=== PATIENT | female | born 1975 | race Caucasian/White ===

== ENCOUNTER → 2016-03-11 | Outpatient (CLI) | payer OTHER ==
[~2016-03-11] MED LIST: BACT2CRE TOP; BACT800T5 PO; CIPR500T89 PO; FAMO10TA5 OR; IBUP800T OR; LEVO500T PO; METO12TA PO; METO25TA2 PO; METOPROLOL OR; PERC5TAB PO; PROZ20CA OR; PYRI200T2 PO; SENO8.6T9 PO; SERT-141 PO; TIZA4TAB OR; VALT1TAB PO; VITA-113 SL; VITA200028 PO; VITAMIN D 2 PO; ZANA4TAB PO; ZOLO50TA PO
--- NOTE | 2016-03-11 18:06 | REP ---
Thoracic spine three views: There is mild thoracic scoliosis convex right. Vertebral body heights and alignment are normal. There are no compression deformities. No listhesis. There is mild degenerative disc disease at multiple levels, not unusual for patient age. There are no lytic, blastic or destructive changes. The pedicles are unremarkable. Impression: Mild scoliosis. Mild multilevel degenerative disc disease. Signed by Lalo Davis MD 03/11/2016 05:57 P
--- NOTE | 2016-03-12 16:23 | REP ---
Cervical spine eight views: Comparison is the MRI dated 03/23/2011. Vertebral body heights and alignment are normal C1-C7. T1 is obscured by the shoulders. There is disc space narrowing at C 05/06, compatible with degenerative disc disease. The remainder of the disc spaces are unremarkable. The prevertebral soft tissues are normal. The facets are normally aligned. There is no bony foraminal encroachment. There is no listhesis on flexion or extension. The C7 transverse processes are mildly elongated bilaterally. Impression: C5-6 degenerative disc disease. Mildly elongated C7 transverse processes bilaterally. Otherwise, negative cervical spine plain film study C1-C7. T1 is obscured by the shoulders and cannot be evaluated. Signed by Lalo Davis MD 03/12/2016 04:14 P
--- NOTE | 2016-03-12 16:24 | REP ---
Lumbar spine five views: Comparison is the MRI dated 03/23/2011. 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 Vertebral body heights, interspacing alignment are normal. There is no spondylolysis or spondylolisthesis. The facets, pedicles and sacroiliac articulations are unremarkable. Impression: Six lumbar segments, otherwise negative lumbar spine. Signed by Lalo Davis MD 03/12/2016 04:15 P
== END ==
LOC: M WUC 11:54
PROVIDERS: ATTEND Nurse Practitioner Adult Health
DX: M54.2 Cervicalgia (principal); M54.5 Low back pain; M41.20 Other idiopathic scoliosis, site unspecified

== ENCOUNTER → 2016-08-18 | Outpatient (CLI) | payer OTHER ==
--- NOTE | 2016-08-18 16:45 | REPMRS ---
Patient History The patient states she had a clinical breast exam in 07/2016. Family history of ovarian cancer in paternal grandmother at age 50 or over. Digital Woman Screen Mammo: August 18, 2016 - Exam #: [id number] Bilateral CC and MLO view(s) were taken. Technologist: Delores Liang Technologist Prior study comparison: July 01, 2015, digital woman screen mammo performed at [facility]. May 05, 2010, right breast digital mammo diagnostic unilateral, performed at [facility]. FINDINGS: There are scattered fibroglandular densities. There has been no change in the appearance of the mammogram from the prior studies. There is a mild amount of scattered fibroglandular density which is fairly symmetric. There is no interval development of dominant mass, architectural distortion, or clustered microcalcification suggestive of malignancy. ASSESSMENT: BI-RADS/ACR category 1 mammogram. Negative. Recommendation Routine screening mammogram in 1 year (for women over age 40). This mammogram was interpreted with the aid of an FDA-approved computer-aided dectection system. Electronically Signed By: Harsha Hyatt MD 08/18/16 [id number]
== END ==
LOC: M WHC 13:34
PROVIDERS: ATTEND Nurse Practitioner Family
DX: Z12.31 Encounter for screening mammogram for malignant neoplasm of breast (principal)

== ENCOUNTER → 2017-08-17 | Outpatient (CLI) | payer BC | LOC: M WHC 13:14 | DX: Z12.31 Encounter for screening mammogram for malignant neoplasm of breast (principal) | CPT/HCPCS: 77067 ==

== ENCOUNTER → 2017-08-23 | Outpatient (CLI) | payer BC | LOC: M WHC 09:22 | DX: R10.2 Pelvic and perineal pain (principal); Z90.710 Acquired absence of both cervix and uterus; Z80.41 Family history of malignant neoplasm of ovary | CPT/HCPCS: 76830 ==

== ENCOUNTER → 2018-08-19 | Outpatient (CLI) | payer BC ==
[~2018-08-19] MED LIST changes: +METO-346 PO; -METO12TA PO
--- NOTE | 2018-08-19 14:09 | REPMRS ---
Patient History The patient states she had a clinical breast exam in 08/2018. Family history of ovarian cancer at age 50 or over in paternal grandmother, colorectal cancer in maternal uncle. No Hormone Replacement Therapy 3D TOMOSYNTHESIS WAS PERFORMED. The Dequan Wick lifetime risk for breast cancer is 11.4%. Digital Woman Screen Mammo: August 19, 2018 - Exam #: [id number] Bilateral CC and MLO view(s) were taken. Technologist: Whitney Trejo, Technologist Prior study comparison: August 17, 2017, bilateral digital woman screen mammo performed at [facility]. August 18, 2016, digital woman screen mammo performed at [facility]. FINDINGS: There are scattered fibroglandular densities. There has been no change in the appearance of the mammogram from the prior studies. There is a mild amount of residual fibroglandular tissue which is fairly symmetric. There is no interval development of dominant mass, architectural distortion, or clustered microcalcification suggestive of malignancy. Assessment: BI-RADS/ACR category 1 mammogram. Negative Mammogram. Recommendation Routine screening mammogram in 1 year (for women over age 40). This mammogram was interpreted with the aid of an FDA-approved computer-aided dectection system. Electronically Signed By: Lalo Hercules MD 08/19/18 [id number]
== END ==
LOC: M WHC 12:46
PROVIDERS: ATTEND Nurse Practitioner Family
DX: Z12.31 Encounter for screening mammogram for malignant neoplasm of breast (principal)

== ENCOUNTER → 2019-08-20 | Outpatient (CLI) | payer BC ==
--- NOTE | 2019-08-20 14:56 | REPMRS ---
Patient History The patient states she had a clinical breast exam in August 2019. Family history of ovarian cancer at age 50 or over in paternal grandmother, colorectal cancer in maternal uncle. No Hormone Replacement Therapy Digital Woman Screen Mammo: August 20, 2019 - Exam #: [id number] Bilateral CC and MLO view(s) were taken. Technologist: Romi Leon Technologist Prior study comparison: August 19, 2018, bilateral digital woman screen mammo performed at [facility]. August 17, 2017, bilateral digital woman screen mammo performed at [facility]. FINDINGS: The breast tissue is almost entirely fat. The [employer] volumetric breast density category is: A. There has been no change in the appearance of the mammogram from the prior studies. There is no interval development of dominant mass, architectural distortion, or grouped microcalcification typical of malignancy. 3-D tomosynthesis shows no additional findings. Assessment: BI-RADS/ACR category 1 mammogram. Negative Mammogram. Recommendation Routine screening mammogram of both breasts in 1 year (for women over age 40). This patient's Lifetime Breast Cancer RIsk is estimated at 11.2 %. This mammogram was interpreted with the aid of an FDA-approved computer-aided dectection system. Electronically Signed By: Harsha Hyatt MD 08/20/19 [id number]
== END ==
LOC: M WHC 12:57
PROVIDERS: ATTEND Nurse Practitioner Family
DX: Z12.31 Encounter for screening mammogram for malignant neoplasm of breast (principal)

== ENCOUNTER → 2020-01-10 | Outpatient (CLI) | payer BC ==
[2020-01-11 06:59] LABS: BASO # 0.1 10^3/uL (0.0-0.2); BASO % 0.8 % (0.0-1.0); EOS # 0.2 10^3/uL (0.0-0.5); EOS % 2.6 % (0.0-3.0); HEMATOCRIT 48.1 % (36.0-47.0); HEMOGLOBIN 15.3 g/dl (12.0-15.5); LYMPH # 2.5 10^3/uL (1.5-5.0); LYMPH % 41.6 % (24.0-44.0); MEAN CORPUSCULAR HEMOGLOBIN 32.4 pg (27.0-33.0); MEAN CORPUSCULAR HGB CONC 31.8 g/dl (32.0-36.5); MEAN CORPUSCULAR VOLUME 101.9 fl (80.0-96.0); MONO # 0.5 10^3/uL (0.0-0.8); MONO % 8.6 % (0.0-5.0); NEUTROPHILS # 2.8 10^3/uL (1.5-8.5); NEUTROPHILS % 46.1 % (36.0-66.0); PLATELET COUNT, AUTOMATED 371 10^3/uL (150-450); RED BLOOD COUNT 4.72 10^6/uL (4.00-5.40)
[2020-01-11 07:23] LABS: BLOOD UREA NITROGEN 12 MG/DL (7-18); CALCIUM LEVEL 9.3 MG/DL (8.5-10.1); CARBON DIOXIDE LEVEL 28 MEQ/L (21-32); CHLORIDE LEVEL 104 MEQ/L (98-107); CREATININE FOR GFR 0.93 MG/DL (0.55-1.30); GLOMERULAR FILTRATION RATE > 60.0 (>58); GLUCOSE, FASTING 96 MG/DL (70-100); POTASSIUM SERUM 4.1 MEQ/L (3.5-5.1); SODIUM LEVEL 138 MEQ/L (136-145)
[2020-01-11 07:24] LABS: ALBUMIN 4.2 GM/DL (3.2-5.2); ALT/SGPT 23 U/L (12-78); BILIRUBIN,TOTAL 0.6 MG/DL (0.2-1.0); CHOLESTEROL LEVEL 216 MG/DL (<200); CHOLESTEROL RISK RATIO 2.918 (<5); HDL CHOLESTEROL 74 MG/DL (>40); LDL CHOLESTEROL 112 MG/DL (<100); NON-HDL-C 142 MG/DL; TOTAL PROTEIN 7.2 GM/DL (6.4-8.2); TRIGLYCERIDES LEVEL 150 MG/DL (<150)
[2020-01-11 07:29] LABS: HEMOGLOBIN A1c 5.3 %
== END ==
LOC: M WUC 08:47
PROVIDERS: ATTEND Nurse Practitioner Adult Health
DX: E78.00 Pure hypercholesterolemia, unspecified (principal); F41.9 Anxiety disorder, unspecified; Z79.899 Other long term (current) drug therapy

== ENCOUNTER 2020-04-15 22:54 | Emergency (ER) | payer BC ==
[~2020-04-15] VITALS: Ht 167.6 cm; Wt 94.5 kg
[2020-04-15] MEDS ORDERED: medical marijuana PO (22:59)
[2020-04-15] MEDS ORDERED: FAMO1TAB25 PO (22:59)
--- OUTSIDE RECORDS SUMMARY | 2020-04-15 23:00 | CCD ---
Author Author [facility] Organization [facility] Address Unknown Phone Unavailable Care Team Providers Care Bad Credit Collector Name Role Phone DAVI MEJIA MD Unavailable Unavailable DAVI MEJIA MD Unavailable Unavailable DAVI MEJIA MD Unavailable Unavailable DAVI MEJIA MD Unavailable Unavailable DAVI MEJIA MD Unavailable Unavailable DAVI MEJIA MD Unavailable Unavailable DAVI MEJIA MD Unavailable Unavailable DAVI MEJIA MD Unavailable Unavailable DAVI MEJIA MD Unavailable Unavailable DAVI MEJAI MD Unavailable Unavailable DAVI MEJIA MD Unavailable Unavailable DAVI MEJIA MD Unavailable Unavailable DAVI MEJIA MD Unavailable Unavailable DAVI MEJIA MD Unavailable Unavailable JACKIE, MAQBOOL MARK MD Unavailable Unavailable JACKIE, MAQBOOL MARK MD Unavailable Unavailable JACKIE, MAQBOOL MARK MD Unavailable Unavailable JACKIE, MAQBOOL MARK MD Unavailable Unavailable JACKIE, MAQBOOL MARK MD Unavailable Unavailable JACKIE, MAQBOOL MARK MD Unavailable Unavailable JACKIE, MAQBOOL MARK MD Unavailable Unavailable JACKIE, MAQBOOL MARK MD Unavailable Unavailable JACKIE, MAQBOOL MARK MD Unavailable Unavailable JACKIE, MAQBOOL MARK MD Unavailable Unavailable JACKIE, MAQBOOL MARK MD Unavailable Unavailable JACKIE, MAQBOOL MARK MD Unavailable Unavailable JACKIE, MAQBOOL MARK MD Unavailable Unavailable JACKIE, MAQBOOL MARK MD Unavailable Unavailable JACKIE, MAQBOOL MARK MD Unavailable Unavailable JACKIE, MAQBOOL MARK MD Unavailable Unavailable JACKIE, MAQBOOL MARK MD Unavailable Unavailable JACKIE, MAQBOOL MARK MD Unavailable Unavailable JACKIE, MAQBOOL MARK MD Unavailable Unavailable JACKIE, MAQBOOL MARK MD Unavailable Unavailable JACKIE, MAQBOOL MARK MD Unavailable Unavailable JACKIE, MAQBOOL MARK MD Unavailable Unavailable JACKIE, MAQBOOL MARK MD Unavailable Unavailable JACKIE, MAQBOOL MARK MD Unavailable Unavailable JACKIE, MAQBOOL MARK MD Unavailable Unavailable JACKIE, MAQBOOL MARK MD Unavailable Unavailable JACKIE, MAQBOOL MARK MD Unavailable Unavailable JACKIE, MAQBOOL MARK MD Unavailable Unavailable JACKIE, MAQBOOL MARK MD Unavailable Unavailable JACKIE, MAQBOOL MARK MD Unavailable Unavailable JACKIE, MAQBOOL MARK MD Unavailable Unavailable JACKIE, MAQBOOL MARK MD Unavailable Unavailable JACKIE, MAQBOOL MARK MD Unavailable Unavailable JACKIE, MAQBOOL MARK MD Unavailable Unavailable JACKIE, MAQBOOL MARK MD Unavailable Unavailable JACKIE, MAQBOOL MARK MD Unavailable Unavailable JACKIE, MAQBOOL MARK MD Unavailable Unavailable JACKIE, MAQBOOL MARK MD Unavailable Unavailable JACKIE, MAQBOOL MARK MD Unavailable Unavailable JACKIE, MAQBOOL MARK MD Unavailable Unavailable JACKIE, MAQBOOL MARK MD Unavailable Unavailable JACKIE, MAQBOOL MARK MD Unavailable Unavailable JACKIE, MAQBOOL MARK MD Unavailable Unavailable JACKIE, MAQBOOL MARK MD Unavailable Unavailable JACKIE, MAQBOOL MARK MD Unavailable Unavailable JACKIE, MAQBOOL MARK MD Unavailable Unavailable JACKIE, MAQBOOL MARK MD Unavailable Unavailable JACKIE, MAQBOOL MARK MD Unavailable Unavailable JACKIE, MAQBOOL MARK MD Unavailable Unavailable JACKIE, MAQBOOL MARK MD Unavailable Unavailable JACKIE, MAQBOOL MARK MD Unavailable Unavailable JACKIE, MAQBOOL MARK MD Unavailable Unavailable JACKIE, MAQBOOL MARK MD Unavailable Unavailable JACKIE, MAQBOOL MARK MD Unavailable Unavailable JACKIE, MAQBOOL MARK MD Unavailable Unavailable JACKIE, MAQBOOL MARK MD Unavailable Unavailable JACKIE, MAQBOOL MARK MD Unavailable Unavailable JACKIE, MAQBOOL MARK MD Unavailable Unavailable JACKIE, MAQBOOL MARK MD Unavailable Unavailable JACKIE, MAQBOOL MARK MD Unavailable Unavailable [facility], Zena Unavailable Dragan, Swetha Samina ANP-BC Unavailable Unavailable Dragan, Swetha Samina ANP-BC Unavailable Unavailable Dragan, Swetha Samina ANP-BC Unavailable Unavailable Dragan, Swetha Samina ANP-BC Unavailable Unavailable Dragan, Swetha Samina ANP-BC Unavailable Unavailable Dragan, Swetha Samina ANP-BC Unavailable Unavailable Dragan, Swetha Samina ANP-BC Unavailable Unavailable Dragan, Swetha Samina ANP-BC Unavailable Unavailable Dragan, Swetha Samina ANP-BC Unavailable Unavailable Dragan, Swetha Samina ANP-BC Unavailable Unavailable Dragan, Swetha Samina ANP-BC Unavailable Unavailable Dragan, Swetha Samina ANP-BC Unavailable Unavailable Dragan, Swetha Samina ANP-BC Unavailable Unavailable Dragan, Swetha Samina ANP-BC Unavailable Unavailable Dragan, Swetha Samina ANP-BC Unavailable Unavailable Dragan, Swetha Samina ANP-BC Unavailable Unavailable Dragan, Swetha Samina ANP-BC Unavailable Unavailable Dragan, Swetha Samina ANP-BC Unavailable Unavailable Dragan, Swetha Samina ANP-BC Unavailable Unavailable Dragan, Swetha Samina ANP-BC Unavailable Unavailable Dragan, Swetha Samina ANP-BC Unavailable Unavailable Dragan, Swetha Samina ANP-BC Unavailable Unavailable Dragan, Swetha Samina ANP-BC Unavailable Unavailable Dragan, Swetha Samina ANP-BC Unavailable Unavailable Dragan, Swetha Samina ANP-BC Unavailable Unavailable Dragan, Swetha Samina ANP-BC Unavailable Unavailable Dragan, Swetha Samina ANP-BC Unavailable Unavailable Dragan, Swetha Samina ANP-BC Unavailable Unavailable Dragan, Swetha Samina ANP-BC Unavailable Unavailable Dragan, Swetha Samina ANP-BC Unavailable Unavailable Dragan, Swetha Samina ANP-BC Unavailable Unavailable Dragan, Swetha Samina ANP-BC Unavailable Unavailable Dragan, Swetha Samina ANP-BC Unavailable Unavailable Dragan, Swetha Samina ANP-BC Unavailable Unavailable Dragan, Swetha Samina ANP-BC Unavailable Unavailable Dragan, Swetha Samina ANP-BC Unavailable Unavailable Dragan, Swetha Samina ANP-BC Unavailable Unavailable Dragan, Swetha Samina ANP-BC Unavailable Unavailable Dragan, Swetha Samina ANP-BC Unavailable Unavailable Dragan, Swetha Samina ANP-BC Unavailable Unavailable Dragan, Swetha Samina ANP-BC Unavailable Unavailable Dragan, Swetha Samina ANP-BC Unavailable Unavailable Dragan, Swetha Samina ANP-BC Unavailable Unavailable Dragan, Swetha Samina ANP-BC Unavailable Unavailable Dragan, Swteha Samina ANP-BC Unavailable Unavailable Dragan, Swetha Samina ANP-BC Unavailable Unavailable Dragan, Swetha Samina ANP-BC Unavailable Unavailable Dragan, Swetha Samina ANP-BC Unavailable Unavailable Dragan, Swetha Samina ANP-BC Unavailable Unavailable Dragan, Swetha Samina ANP-BC Unavailable Unavailable Dragan, Swetha Samina ANP-BC Unavailable Unavailable Dragan, Swetha Samina ANP-BC Unavailable Unavailable Dragan, Swetha Samina ANP-BC Unavailable Unavailable Dragan, Swetha Samina ANP-BC Unavailable Unavailable Dragan, Swetha Samina ANP-BC Unavailable Unavailable Dragan, Swetha Samina ANP-BC Unavailable Unavailable Dragan, Swetha Samina ANP-BC Unavailable Unavailable Dragan, Swetha Samina ANP-BC Unavailable Unavailable Dragan, Swetha Samina ANP-BC Unavailable Unavailable Dragan, Swetha Samina ANP-BC Unavailable Unavailable Dragan, Swetha Samina ANP-BC Unavailable Unavailable Dragan, Swetha Samina ANP-BC Unavailable Unavailable Dragan, Swetha Samina ANP-BC Unavailable Unavailable Dragan, Swetha Samina ANP-BC Unavailable Unavailable Dragan, Swetha Samina ANP-BC Unavailable Unavailable Dragan, Swetha Samina ANP-BC Unavailable Unavailable Dragan, Swetha Samina ANP-BC Unavailable Unavailable Dragan, Swetha Samina ANP-BC Unavailable Unavailable Dragan, Swetha Samina ANP-BC Unavailable Unavailable Dragan, Swetha Samina ANP-BC Unavailable Unavailable Draagn, Swetha Samina ANP-BC Unavailable Unavailable Dragan, Swetha Samina ANP-BC Unavailable Unavailable Dragan, Swetha Samina ANP-BC Unavailable Unavailable Dragan, Swetha Samina ANP-BC Unavailable Unavailable Dragan, Swetha Samina ANP-BC Unavailable Unavailable Dragan, Swetha Samina ANP-BC Unavailable Unavailable Dragan, Swetha Samina ANP-BC Unavailable Unavailable Dragan, Swetha Samina ANP-BC Unavailable Unavailable Dragan, Swetha Samina ANP-BC Unavailable Unavailable Dragan, Swetha Samina ANP-BC Unavailable Unavailable Dragan, Swetha Samina ANP-BC Unavailable Unavailable Dragan, Swetha Samina ANP-BC Unavailable Unavailable Dragan, Swetha Asmina ANP-BC Unavailable Unavailable Dragan, Swetha Samina ANP-BC Unavailable Unavailable Dragan, Swetha Samina ANP-BC Unavailable Unavailable Dragan, Swetha Samina ANP-BC Unavailable Unavailable Dragan, Swetha Samina ANP-BC Unavailable Unavailable Dragan, Swetha Samina ANP-BC Unavailable Unavailable Dragan, Swetha Samina ANP-BC Unavailable Unavailable Dragan, Swetha Samina ANP-BC Unavailable Unavailable Dragan, Swetha Samina ANP-BC Unavailable Unavailable Dragan, Swetha Samina ANP-BC Unavailable Unavailable Dargan, Swetha Samina ANP-BC Unavailable Unavailable Dragan, Swetha Samina ANP-BC Unavailable Unavailable Dragan, Swetha Samina ANP-BC Unavailable Unavailable Dragan, Swetha Samina ANP-BC Unavailable Unavailable Dragan, Swetha Samina ANP-BC Unavailable Unavailable Dragan, Swetha Samina ANP-BC Unavailable Unavailable Dragan, Swetha Samina ANP-BC Unavailable Unavailable Dragan, Swetha Samina ANP-BC Unavailable Unavailable Dragan, Swetha Samina ANP-BC Unavailable Unavailable Dragan, Swetha Samina ANP-BC Unavailable Unavailable Dragan, Swetha Samina ANP-BC Unavailable Unavailable Dragan, Swetha Samina ANP-BC Unavailable Unavailable Dragan, Swetha Samina ANP-BC Unavailable Unavailable Dragan, Swetha Samina ANP-BC Unavailable Unavailable Dragan, Swetha Samina ANP-BC Unavailable Unavailable Dragan, Swetha Samina ANP-BC Unavailable Unavailable Dragan, Swetha Samina ANP-BC Unavailable Unavailable Dragan, Swetha Samina ANP-BC Unavailable Unavailable Dragan, Swetah Samina ANP-BC Unavailable Unavailable Dragan, Swetha Samina ANP-BC Unavailable Unavailable Dragan, Swetha Samina ANP-BC Unavailable Unavailable Dragan, Swetha Samina ANP-BC Unavailable Unavailable Dragan, Swetha Samina ANP-BC Unavailable Unavailable Dragan, Swetha Samina ANP-BC Unavailable Unavailable Dragan, Swetha Samina ANP-BC Unavailable Unavailable Dragan, Swetha Samina ANP-BC Unavailable Unavailable Dragan, Swetha Samina ANP-BC Unavailable Unavailable Dragan, Swetha Samina ANP-BC Unavailable Unavailable Dragan, Swetha Samina ANP-BC Unavailable Unavailable Dragan, Swetha Samina ANP-BC Unavailable Unavailable Dragan, Swetha Samina ANP-BC Unavailable Unavailable Dragan, Swetha Samina ANP-BC Unavailable Unavailable Dragan, Swetha Samina ANP-BC Unavailable Unavailable Dragan, Swetha Samina ANP-BC Unavailable Unavailable Dragan, Swetha Samina ANP-BC Unavailable Unavailable Dragan, Swetha Samina ANP-BC Unavailable Unavailable ANABELA Archibald, Sherrie Unavailable Re-disclosure Warning The records that you are about to access may contain information from federally-assisted alcohol or drug abuse programs. If such information is present, then the following federally mandated warning applies: This information has been disclosed to you from records protected by federal confidentiality rules (42 CFR part 2). The federal rules prohibit you from making any further disclosure of this information unless further disclosure is expressly permitted by the written consent of the person to whom it pertains or as otherwise permitted by 42 CFR part 2. A general authorization for the release of medical or other information is NOT sufficient for this purpose. The Federal rules restrict any use of the information to criminally investigate or prosecute any alcohol or drug abuse patient.The records that you are about to access may contain highly sensitive health information, the redisclosure of which is protected by Article 27-F of the [facility] Public Health law. If you continue you may have access to information: Regarding HIV / AIDS; Provided by facilities licensed or operated by the [facility] Office of Mental Health; or Provided by the [facility] Office for People With Developmental Disabilities. If such information is present, then the following [facility] mandated warning applies: This information has been disclosed to you from confidential records which are protected by state law. State law prohibits you from making any further disclosure of this information without the specific written consent of the person to whom it pertains, or as otherwise permitted by law. Any unauthorized further disclosure in violation of state law may result in a fine or prison sentence or both. A general authorization for the release of medical or other information is NOT sufficient authorization for further disc losure. 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 -NO Allergies and Adverse Reactions Type Description Substance Reaction Status Data Source(s ) Drug Allergy Drug Allergy NKDA [facility] ([facility], ) Family History Family Member Name Family Member Gender Family Member Status Date o f Status Description Data Source(s) Unknown Male Problem [facility] ([facility]) Unknown Unknown Problem [facility] ([facility] Unknown Unknown Problem [facility] ([facility]) Unknown Unknown Problem [facility] ([facility]) Unknown Unknown Problem [facility] ([facility]) Unknown Unknown Problem [facility] ([facility]) Encounters Encounter Providers Location Date Indications Data Source(s ) Outpatient<td ID="encounterTypeDescripti onID0">Hygeine 45min</td><td>Zena Browning [facility]</td><td>[facility]</td><td>03/29/2020</td><td>2:43PM</td><td>03/23/2020 11:59PM</td><td></td> Attender: Zena Browning RD [facility] 03/29/19 02:43:00 PM EST - 03/23/2020 11:59:00 PM EST [place] ([facility]) Outpatient Attender: Samina SILVESTRE 12/21 09:40:00 AM EST - 01/14/2020 09:40:00 AM EST [facility] Outpatient Attender: Samina SILVESTRE 09/19 08:01:00 AM EDT - 10/08/2019 08:01:00 AM EDT [facility] Outpatient Attender: Samina SILVESTRE 09/19 08:12:00 AM EDT - 10/01/2019 08:12:00 AM EDT [facility] [address] [place] [phone] 08/20/2019 12:00:00 AM EDT eCW1 ([facility]) Outpatient Attender: Samina SILVESTRE 03/22 11:11:00 AM EST - 04/09/2019 11:11:00 AM EST [facility] Outpatient Attender: Samina SILVESTRE Family Practice 03/22 10:20:00 AM EST [facility] ([facility]) Outpatient Attender: MARK MEJIA MD 04/02/2019 07:40:00 A M EST [facility] Outpatient<td ID="encounterTypeDescripti onID1">COVID 19 IMM</td><td>Sherrie Archibald RN</td><td>[facility]</td><td>03/23/2020</td><td>03/17/2019 3:10PM</td><td>1:59PM</td><td></td> Attender: ANABELA [facility] 03/17/2019 03:10:00 PM EST - 03/23/2020 01:59:09 PM EST [place] Unknown<td ID="encounterTypeDescriptionI D0">H Child Prophy</td><td>Zena Browning RDH</td><td>[facility]</td><td>03/17/2019</td><td></td> [facility]/17/2019 01:01:00 PM EST - 03/17/2019 11:59:00 PM EST [place] ([facility] ) Outpatient<td ID="encounterTypeDescripti onID2">COVID 19 IMM</td><td>Sherrie Archibald RN</td><td>[facility]</td><td>02/24/2020</td><td>03/17/2019 7:30AM</td><td>8:26AM</td><td></td> Attender: Sherrie Archibald RN [facility] 03/17/2019 07:30:00 AM EST - 02/24/2020 08:26:01 AM EST [place] ([facility]) Outpatient Attender: Samina Archibald [facility] 12/21 02:27:00 PM EST - 01/15/2019 02:27:00 PM EST [facility] Immunizations Vaccine Date Status Description Data Source(s) Moderna COVID-19 03/23/2020 01:44:00 PM EST completed Moderna COVID- 19 2 03/23/2020 Right Deltoid Complete (Administered) [facility] [place] ([facility]) Note: Pt tolerated well Moderna COVID-19 02/24/2020 07:52:00 AM EST completed Moderna COVID- 19 1 02/24/2020 Right Deltoid Complete (Administered) [facility] [place] ([facility]) Note: Administered 0.5ml right deltoid, dosage confirmed with Sherrie Archibald, patient tolerated well. [email or web address] Medications Medication Brand Name Start Date Product Form Dose Route Admi nistrative Instructions Pharmacy Instructions Status Indications Reaction Description Data Source(s) 1 mg 10/14/2019 12:00:00 AM EDT tablet 56 TAKE ONE TABLET BY MOUTH TWICE A DAY TAKE ONE TABLET BY MOUTH TWICE A DAY SOLD: 10/19/2019 [facility] 0.5 mg (11)- 1 mg (42) 10/14/2019 12:00:00 AM EDT tablets,do se pack 53 TAKE PER PACKAGE INSTRUCTIONS TAKE PER PACKAGE INSTRUCTIONS SOLD: 10/19/2019 [facility] Chantix Continuing Month Zev Chantix Continuing Month Zev 12:00:00 AM EDT ORAL active [facility] ([facility]) Chantix Starting Month Zev Chantix Starting Month Zev 2019 12:00:00 AM EDT completed [facility] ([facility]) 50 mcg/actuation 06/04/2019 12:00:00 AM EDT spray,suspension 48 SPRAY TWO SPRAYS IN EACH NOSTRIL EVERY DAY SPRAY TWO SPRAYS IN EACH NOSTRIL EVERY DAY SOLD: 06/09/2019 [facility] 25 mg 06/04/2019 12:00:00 AM EDT tablet 100 TAKE 1 TABLET BY MOUTH 1-4 TIMES A DAY NEEDED FOR ANXIETY TAKE 1 TABLET BY MOUTH 1-4 TIMES A DAY A S NEEDED FOR ANXIETY SOLD: 06/09/2019 [facility] 1 gram 06/04/2019 12:00:00 AM EDT tablet 21 TAKE ONE TABLET BY MOUTH TWICE A DAY FOR 7 DAYS FOR FLARE UPS TAKE ONE TABLET BY MOUTH TWICE A DAY FOR 7 DAYS FOR FLARE UPS SOLD: 06/09/2019 [facility] 4 mg 06/04/2019 12:00:00 AM EDT tablet 270 TAKE ONE TABLET BY MOUTH THREE TIMES A DAY NEEDED MAY TAKE 2 AT BEDTIME TAKE ONE TABLET BY MOUTH THREE TIMES A DAY NEEDED MAY TAKE 2 AT BEDTIME SOLD: 12/19/2019 [facility] Trazodone Hydrochloride 100 MG Oral Tablet TRAZODONE HCL 06/04/2019 12:00:00 AM EDT tablet 90 TAKE ONE TABLET BY MOUTH AT BEDTIME TAKE ONE TABLET BY MOUTH AT BEDTIME SOLD: 09/15/2019 [facility] 4 mg 06/04/2019 12:00:00 AM EDT tablet 270 TAKE ONE TABLET BY MOUTH THREE TIMES A DAY NEEDED MAY TAKE 2 AT BEDTIME TAKE ONE TABLET BY MOUTH THREE TIMES A DAY NEEDED MAY TAKE 2 AT BEDTIME SOLD: 06/09/2019 [facility] 20 mg 06/04/2019 12:00:00 AM EDT tablet 180 TAKE ONE TABLET BY MOUTH TWICE A DAY TAKE ONE TABLET BY MOUTH TWICE A DAY SOLD: 12/19/2019 [facility] Trazodone Hydrochloride 100 MG Oral Tablet TRAZODONE HCL 06/04/2019 12:00:00 AM EDT tablet 90 TAKE ONE TABLET BY MOUTH AT BEDTIME TAKE ONE TABLET BY MOUTH AT BEDTIME SOLD: 06/09/2019 [facility] 20 mg 06/04/2019 12:00:00 AM EDT tablet 180 TAKE ONE TABLET BY MOUTH TWICE A DAY TAKE ONE TABLET BY MOUTH TWICE A DAY SOLD: 06/09/2019 [facility] Trazodone Hydrochloride 100 MG Oral Tablet TRAZODONE HCL 06/04/2019 12:00:00 AM EDT tablet 90 TAKE ONE TABLET BY MOUTH AT BEDTIME TAKE ONE TABLET BY MOUTH AT BEDTIME SOLD: 12/19/2019 [facility] Trazodone Hydrochloride 100 MG Oral Tablet TRAZODONE HCL 04/11/2019 12:00:00 AM EST tablet 30 TAKE ONE TABLET BY MOUTH AT BEDTIME TAKE ONE TABLET BY MOUTH AT BEDTIME SOLD: 04/18/2019 [facility] Trazodone Hydrochloride 100 MG Oral Tablet TRAZODONE HCL 03/20/2019 12:00:00 AM EST tablet 30 TAKE ONE TABLET BY MOUTH AT BEDTIME TAKE ONE TABLET BY MOUTH AT BEDTIME SOLD: 03/26/2019 [facility] Famotidine 20 MG Oral Tablet FAMOTIDINE 03/13/2019 12:00:00 AM EST tab let 60 TAKE ONE TABLET BY MOUTH TWO TIMES A DAY TAKE ONE TABLET BY MOUTH TWO TIMES A DAY SOLD: 05/03/2019 [facility] Famotidine 20 MG Oral Tablet FAMOTIDINE 03/13/2019 12:00:00 AM EST tab let 60 TAKE ONE TABLET BY MOUTH TWO TIMES A DAY TAKE ONE TABLET BY MOUTH TWO TIMES A DAY SOLD: 03/19/2019 [facility] Famotidine 20 MG Oral Tablet Famotidine 03/12/2019 12:00:00 AM EST ORAL active [facility] ([facility]) 100 mg 01/17/2019 12:00:00 AM EST tablet 30 TAKE ONE TABLET BY MOUTH AT BEDTIME TAKE ONE TABLET BY MOUTH AT BEDTIME SOLD: 02/17/2019 [facility] 4 mg 08/19/2018 12:00:00 AM EDT tablet 90 TAKE ONE TABLET BY MOUTH THREE TIMES A DAY NEEDED, MAY TAKE 2 TABLETS AT BEDTIME TAKE ONE TABLET BY MOUTH THREE TIMES A DAY NEEDED, MAY TAKE 2 TABLETS AT BEDTIME SOLD: 05/03/2019 [facility] 50 mcg/actuation 08/19/2018 12:00:00 AM EDT spray,suspension 16 INSTILL 2 SPRAYS INTO EACH NOSTRIL ONCE DAILY INSTILL 2 SPRAYS INTO EACH NOSTRIL ONCE DAILY SOLD: 02/17/2019 [facility] Insurance Providers Payer name Policy type / Coverage type Policy ID Covered alliance party ID Covered alliance party's relationship to barnes Policy [place] Plan Information [place] P[place] 302/307 [id number] SP [id number] [facility] [id number] 18 [id number] BLUE CROSS BLUE SHIELD -O/P BS [id number] 18 [id number] [employer] BCBS B [id number] S [id number] SELF PAY BLUE CROSS [id number] SP [id number] D [facility] CHP/Essential Plan P [id number] S [id number] SELF PAY BLUE CROSS [id number] SP [id number] [facility] Commercial [id number] Self [id number] ANSI-Commercial [id number] ANSI-Commercial [id number] [facility] Commercial [id number] Self [id number] ANSI-Commercial [id number] BLUE CROSS [id number] SP [id number] [place] PPO 302/307 [id number] SP [id number] [facility] COMMUNITY PLAN [id number] Self Pay P UNAVAILABLE S UNAVAILA BLE [facility] COMMUN[facility] PLAN [facility] [id number] SP [id number] [facility] [id number] SP [id number] BCBS/[employer] Commercial Self BCBS/[employer] Medigap Part B Self D Guardian P [id number] S [id number] BCBS [place] PPO 302/307 [id number] SP [id number] [facility] [id number] SP [id number] Self Pay P [id number] S [id number] Sliding Fee Scale P [id number] S [id number] BCBS/[employer] Commercial Self Sliding Fee Scale P UNAVAILABLE S UNAVAILABLE Managed Care BCBS S [id number] S [id number] Medicaid P [id number] S [id number] D [facility] Care [facility] S [id number] S [id number] D [facility] Care [employer] O [id number] S [id number] Medicaid Dental O [id number] S [id number] Excellus BCYO O [id number] S [id number] HMO BLUE [id number] SP [id number] Problems, Conditions, and Diagnoses Code Display Name Description Problem Type Effective Dates Data Source(s) C10611 Other long term care pharmacist (current) drug therapy O ther snf (current) drug therapy Diagnosis 10/01/2019 08:12:00 AM [facility] F419 Anxiety disorder, unspecified Anxiety disorder, unspec ified Diagnosis 10/01/2019 08:12:00 AM [facility] E7800 Pure hypercholesterolemia, unspecified P ure hypercholesterolemia, unspecified Diagnosis 10/01/2019 08:12:00 AM [facility] R12 Heartburn Heartburn Diagnosis 04/09/2019 11:11:00 AM [facility] G4700 Insomnia, unspecified Insomnia, unspecified Diagnosis 04/09/2019 11:11:00 AM [facility] F329 Major depressive disorder, single episod e, unspecified Major depressive disorder, single episode, unspecified Diagnosis 04/09/2019 11:11:00 AM [facility] M519 Unspecified thoracic, thorac olumbar and lumbosacral intervertebral disc disorder Unspecified thoracic, thoracolumbar and lumbosacral intervertebral disc disorder Diagnosis 04/09/2019 11:11:00 AM EST [facility] E78.00 Pure hypercholesterolemia, unspecified E 78.00 - Pure hypercholesterolemia, unspecified Diagnosis 04/02/2019 07:40:00 AM [facility] Surgeries/Procedures Procedure Description Date Indications Data Source(s) Bitewing - 4 radiographic images [place] - 4 radiographic i mages 03/29/2020 12:00:00 AM EST [place] ([facility]) Oral Cancer Screening Oral Cancer Screening 03/29/2020 12:00:00 AM EST [place] ([facility]) Periodontal Charting Periodontal Charting 03/29/2020 12:00:00 AM ES T [place] ([facility]) Prophylaxis Adult Prophylaxis Adult 03/29/2020 12:00:00 AM EST [place] ([facility]) Periodic Oral Evaluation Periodic Oral Evaluation 03/29/2020 12:00: 00 AM EST [place] ([facility]) Oral Hygiene/[facility] Oral Hygiene/[facility] 03/29/2020 12:00:00 AM EST [place] ([facility]) Nutritional Counseling Nutritional Counseling 03/29/2020 12:00:00 A M EST [place] ([facility]) Brief Emotional/Behav Assessment W/ Scoring Doc Per Standard Inst 01/14/2020 12:00:00 AM EST [facility] ([facility]) Results ID Date Data Source [id number] 01/10/2020 08:49:00 AM EST [facility] ([facility]) Name Value Range Interpretation Code Description Data Devika rce(s) Supporting Document(s) Hemoglobin A1c 5.3 % Normal (applies to non-numeric r esults) [facility] ([facility]) <content>REFERENCE RANGES:</content><br/ ><content></content>
<content><=5.6% NORMAL</content>
<content>5.7-6.4% SUGGESTS IMPAIRED GLUCOSE METABOLISM/PREDIABETIC</content>
<content>>= 6.5% ABNORMAL</content>
<content></content> Estimated Average Glucose 105 mg/dL 60-110 Normal (applies to non-numeric results) [facility] ([facility]) ID Date Data Source [id number] 01/10/2020 08:49:00 AM EST [facility] ([facility]) Name Value Range Interpretation Code Description Data Devika rce(s) Supporting Document(s) Thyrotropin [Units/volume] in Serum or Plasma 1.260 uIU/ML 0. 358-3.740 Normal (applies to non-numeric results) [facility] ([facility]) ID Date Data Source [id number] 01/10/2020 08:49:00 AM EST [facility] ([facility]) Name Value Range Interpretation Code Description Data Devika rce(s) Supporting Document(s) Triglycerides Level 150 mg/dL Normal (applies to non-nume alexys results) [facility] ([facility]) Cholesterol Level 216 mg/dL Above high normal [facility] HDL Cholesterol 74 mg/dL Normal (applies to non-numeric results) [facility] ([facility]) Cholesterol Risk Ratio 2.918 Normal (applies to non-n umeric results) [facility] ([facility]) Non-HDL-C 142 mg/dL Normal (applies to non-numeric resul ts) [facility] ([facility]) LDL Cholesterol 112 mg/dL Above high normal [facility]) ID Date Data Source [id number] 01/10/2020 08:49:00 AM EST [facility] ([facility]) Name Value Range Interpretation Code Description Data Devika rce(s) Supporting Document(s) Creatinine For GFR 0.93 mg/dL 0.55-1.30 Normal (applies to non -numeric results) [facility] ([facility]) Glucose, Fasting 96 mg/dL 70-100 Normal (applies to non-numeric results) [facility] ([facility]) Blood Urea Nitrogen 12 mg/dL 7-18 Normal (applies to non-nume alexys results) [facility] ([facility]) Sodium Level 138 meq/L 136-145 Normal (applies to non-numeric res ults) [facility] ([facility]) Glomerular Filtration Rate Laboratory test result Normal (applies to non- numeric results) [facility] ([facility]) <content>Units are mL/min/1.73 m2</content>
<content></content>
<content>Chronic Kidney Disease Staging per NKF:</content>
<content></content>
<content>Stage I & II GFR >=60 Normal to Mildly Decreased</content>
<content>Stage III GFR 30- 59 Moderately Decreased</content>
<content>Stage IV GFR 15-29 Severely Decreased</content>
<content>Stage V GFR <15 Very Little GFR Left</content>
<content>ESRD GFR <15 on BIZTALK ARCHITECT</content>
<content></content> Potassium Serum 4.1 meq/L 3.5-5.1 Normal (applies to non-numeric results) [facility] ([facility]) Chloride Level 104 meq/L 98-107 Normal (applies to non-numeric r esults) [facility] ([facility]) Anion Gap 6 meq/L 8-16 Below low normal [facility] ( [facility]) Carbon Dioxide Level 28 meq/L 21-32 Normal (applies to non-num hunter results) [facility] ([facility]) Calcium Level 9.3 mg/dL 8.5-10.1 Normal (applies to non-numeric re sults) [facility] ([facility]) Alt/SGPT 23 U/L 12-78 Normal (applies to non-numeric resul ts) [facility] ([facility]) Ast/Sgot 18 U/L 7-37 Normal (applies to non-numeric resul ts) [facility] ([facility]) Bilirubin,Total 0.6 mg/dL 0.2-1.0 Normal (applies to non-numeric results) [facility] ([facility]) Alkaline Phosphatase 127 U/L 45-117 Above high normal [facility] ([facility]) Albumin 4.2 GM/DL 3.2-5.2 Normal (applies to non-numeric resul ts) [facility] ([facility]) Albumin/Globulin Ratio 1.4 1.2-2.2 Normal (applies to non-n umeric results) [facility] ([facility]) Total Protein 7.2 GM/DL 6.4-8.2 Normal (applies to non-numeric re sults) [facility] ([facility]) ID Date Data Source [id number] 01/10/2020 08:49:00 AM EST [facility] ([facility]) Name Value Range Interpretation Code Description Data Devika rce(s) Supporting Document(s) Neutrophils % 46.1 % 36.0-66.0 Normal (applies to non-numeric re sults) [facility] ([facility]) Lymph % 41.6 % 24.0-44.0 Normal (applies to non-numeric resul ts) [facility] ([facility]) Eos % 2.6 % 0.0-3.0 Normal (applies to non-numeric resul ts) [facility] ([facility]) Baso % 0.8 % 0.0-1.0 Normal (applies to non-numeric resul ts) [facility] ([facility]) [place] % 8.6 % 0.0-5.0 Above high normal [facility] ([facility]) Neutrophils # 2.8 10 1.5-8.5 Normal (applies to non-numeric re sults) [facility] ([facility]) Immature Granulocyte % 0.3 % 0-3.0 Normal (applies to non-n umeric results) [facility] ([facility]) Lymph # 2.5 10 1.5-5.0 Normal (applies to non-numeric resul ts) [facility] ([facility]) Baso # 0.1 10 0.0-0.2 Normal (applies to non-numeric resul ts) [facility] ([facility]) [place] # 0.5 10 0.0-0.8 Normal (applies to non-numeric resul ts) [facility] ([facility]) Eos # 0.2 10 0.0-0.5 Normal (applies to non-numeric resul ts) [facility] ([facility]) ID Date Data Source [id number] 01/10/2020 08:49:00 AM EST [facility] ([facility]) Name Value Range Interpretation Code Description Data Devika rce(s) Supporting Document(s) Red Blood Count 4.72 10 4.00-5.40 Normal (applies to non-numeric results) [facility] ([facility]) Hemoglobin 15.3 g/dL 12.0-15.5 Normal (applies to non-numeric resul ts) [facility] ([facility]) White Blood Count 6.0 10 4.0-10.0 Normal (applies to non-numeri c results) [facility] ([facility]) Mean Corpuscular Hemoglobin 32.4 pg 27.0-33.0 Norm al (applies to non-numeric results) [facility] ([facility]) Hematocrit 48.1 % 36.0-47.0 Above high normal [facility] ([facility]) Mean Corpuscular Volume 101.9 fl 80.0-96.0 Above high normal [facility] ([facility]) Red Cell Distribution Width 13.4 % 11.5-14.5 Norm al (applies to non-numeric results) [facility] ([facility]) Mean Corpuscular HGB Conc 31.8 g/dL 32.0-36.5 Below low normal [facility] Platelet Count, Automated 371 10 150-450 Normal (applies to non-numeric results) [facility] ([facility]) Nucleated Red Blood Cell % 0.0 % 0-0 Normal (applies to n on-numeric results) [facility] ([facility]) ID Date Data Source [id number] 10/01/2019 08:15:00 AM EDT [facility] ([facility]) Name Value Range Interpretation Code Description Data Devika rce(s) Supporting Document(s) Triglycerides 112 mg/dL 35-160 [facility] ([facility]) Is patient fasting? Y Cholesterol 216 mg/dL 131-200 Above high normal [facility] ([facility]) Is patient fasting? Y Cve Panel Laboratory test result [facility] ([facility]) Is patient fasting? Y Risk Factor 3.0 3.2-4.4 Below low normal [facility] ([facility]) Is patient fasting? Y HDL 72 mg/dL 29-86 [facility] ([facility]) Is patient fasting? Y LDL 121 mg/dL 65-175 [facility] ([facility]) Is patient fasting? Y LDL/HDL 1.68 1.47-3.22 [facility] ([facility]) Is patient fasting? Y ID Date Data Source [id number] 10/01/2019 08:15:00 AM EDT [facility] ([facility]) Name Value Range Interpretation Code Description Data Devika rce(s) Supporting Document(s) Hemoglobin A1c/Hemoglobin.total in Blood 5.3 % 4.4-6.1 [facility] ([facility]) Is patient fasting? Y Thyrotropin [Units/volume] in Serum or Plasma 0.98 uIU/mL 0.47-5.01 [facility] ([facility]) Is patient fasting? Y ID Date Data Source [id number] 10/01/2019 08:15:00 AM EDT [facility] ([facility]) Name Value Range Interpretation Code Description Data Devika rce(s) Supporting Document(s) Potassium 4.4 meq/L 3.6-5.0 [facility] ([facility]) Is patient fasting? Y Comprehensive Metabo Laboratory test result [facility] ([facility]) Is patient fasting? Y Sodium 139 meq/L 134-153 [facility] ([facility]) Is patient fasting? Y Co2 25 meq/L 22-30 [facility] ([facility]) Is patient fasting? Y Glucose 101 mg/dL 65-110 [facility] ([facility]) Is patient fasting? Y Chloride 103 meq/L 98-107 [facility] ([facility]) Is patient fasting? Y BUN/Creat 20 8-27 [facility] ([facility]) Is patient fasting? Y BUN 20 mg/dL 7-21 [facility] ([facility]) Is patient fasting? Y Creatinine 1.0 mg/dL 0.7-1.5 [facility] ([facility]) Is patient fasting? Y Albumin 4.8 g/dL 3.9-5.0 [facility] ([facility]) Is patient fasting? Y Total Protein 7.1 g/dL 6.3-8.2 [facility] ([facility]) Is patient fasting? Y Globulin 2.3 GM/DL 2.4-3.2 Below low normal [facility] ( [facility]) Is patient fasting? Y A/G Ratio 2.1 0.8-2.0 Above high normal [facility] ([facility]) Is patient fasting? Y Alkaline Phos 124 U/L 38-126 [facility] ([facility]) Is patient fasting? Y Total Bili Laboratory test result 0.2-1.3 [facility] ([facility]) Is patient fasting? Y Calcium 10.0 mg/dL 8.4-10.2 [facility] ([facility]) Is patient fasting? Y Anion Gap 11.0 mmol/L 8.0-16.0 [facility] ([facility]) Is patient fasting? Y SGPT/Alt 20 U/L 7-56 [facility] ([facility]) Is patient fasting? Y Sgot/Ast 22 U/L 5-40 [facility] ([facility]) Is patient fasting? Y Age 43 yrs [facility] ([facility]) Is patient fasting? Y Afr Amer GFR Laboratory test result [facility] ([facility]) Is patient fasting? Y Non-Aa GFR Laboratory test result [facility] ([facility]) Is patient fasting? Y ID Date Data Source [id number] 10/01/2019 08:15:00 AM EDT [facility] ([facility]) Name Value Range Interpretation Code Description Data Devika rce(s) Supporting Document(s) CBC W/Automated Diff Laboratory test result [facility] ([facility]) Is patient fasting? Y WBC 4.0 10^3/uL 4.2-11.0 Below low normal [facility] ([facility]) Is patient fasting? Y Hemoglobin 15.6 g/dL 12.0-16.0 [facility] ([facility]) Is patient fasting? Y Hematocrit 46.7 % 37.0-47.0 [facility] ([facility]) Is patient fasting? Y RBC 4.82 10^6/uL 4.20-5.40 [facility] ([facility]) Is patient fasting? Y MCV 96.9 fL 81.0-101 [facility] ([facility]) Is patient fasting? Y RDW 12.3 % 11.5-14.5 [facility] ([facility]) Is patient fasting? Y MCHC 33.4 g/dL 31.0-36.0 [facility] ([facility]) Is patient fasting? Y MCH 32.4 pg 27.0-34.0 [facility] ([facility]) Is patient fasting? Y MPV 9.6 fL 7.4-10.4 [facility] ([facility]) Is patient fasting? Y Neut 44.6 % 37.0-80.0 [facility] ([facility]) Is patient fasting? Y Platelets 304 10^3/uL 150-450 [facility] ([facility]) Is patient fasting? Y Lymph 41.0 % 25.0-40.0 Above high normal [facility] ([facility]) Is patient fasting? Y [place] 9.5 % 3.0-8.0 Above high normal [facility] ([facility]) Is patient fasting? Y Eos 3.3 % 0.0-7.0 [facility] ([facility]) Is patient fasting? Y %Ig 0.3 % 0.0-0.0 Above high normal [facility] ([facility]) Is patient fasting? Y %NRBC 0.0 % 0.0-0.0 [facility] ([facility]) Is patient fasting? Y Baso 1.3 % 0.0-2.5 [facility] ([facility]) Is patient fasting? Y #[place] 0.38 10^3/uL 0.00-0.90 [facility] ([facility]) Is patient fasting? Y #Neut 1.78 10^3/uL 2.00-6.90 Below low normal [facility] ([facility]) Is patient fasting? Y #Lymph 1.63 10^3/uL 0.60-3.40 [facility] ([facility]) Is patient fasting? Y #Ig 0.01 10^3/uL 0.00-0.10 [facility] ([facility]) Is patient fasting? Y #Baso 0.05 10^3/uL 0.00-0.20 [facility] ([facility]) Is patient fasting? Y #Eos 0.13 10^3/uL 0.00-0.70 [facility] ([facility]) Is patient fasting? Y RBC Morph Laboratory test result [facility] ([facility]) Is patient fasting? Y #NRBC 0.00 10^3/uL 0.00-0.00 [facility] ([facility]) Is patient fasting? Y Manual Diff Laboratory test result [facility] ([facility]) Is patient fasting? Y ID Date Data Source [id number] 10/01/2019 07:23:00 PM EDT [facility] Name Value Range Interpretation Code Description Data Devika rce(s) Supporting Document(s) Thyrotropin [Units/volume] in Serum or Plasma by Detec tion limit <= 0.05 mIU/L 0.98 uIU/mL 0.47 - 5.01 [facility] ID Date Data Source [id number] 10/01/2019 07:09:00 PM EDT [facility] Name Value Range Interpretation Code Description Data Devika rce(s) Supporting Document(s) CVE PANEL [facility] LIPID PANEL Cholesterol [Mass/volume] in Serum or Plasma 216 MG/DL 131 - 200 H [facility] Deprecated Triglyceride [Mass/volume] in Serum or Plasma 112 MG/DL 3 5 - 160 [facility] HDL 72 MG/DL 29 - 86 [facility] Cholesterol in LDL [Mass/volume] in Serum or Plasma by Direc t assay 121 mg/dL 65 - 175 [facility] Cholesterol.total/Cholesterol in HDL [Mass Ratio] in Serum o r Plasma 3.0 3.2 - 4.4 L [facility] LDL/HDL 1.68 1.47 - 3.22 [facility] ital CVE RISK CHOL/HDL LDL/HDLMEN: 1/2 AVERAGE 3.43 1.00 AVERAGE 4.97 3.55 2X AVERAGE 9.55 6.25 3X AVERAGE 23.99 7.99WOMEN: 1/2 AVERAGE 3.27 1.47 AVERAGE 4.44 3.22 2X AVERAGE 7.05 5.03 3X AVERAGE 11.04 6.14 ID Date Data Source [id number] 10/01/2019 07:09:00 PM EDT [facility] Name Value Range Interpretation Code Description Data Devika rce(s) Supporting Document(s) COMPREHENSIVE METABOLIC PANEL [facility] COMPREHENSIVE METABOLIC PANEL Sodium [Moles/volume] in Serum or Plasma 139 mEq/L 134 - 153 [facility] Potassium [Moles/volume] in Serum or Plasma 4.4 mEq/L 3.6 - 5.0 [facility] Chloride [Moles/volume] in Serum or Plasma 103 mEq/L 98 - 107 [facility] Carbon dioxide, total [Moles/volume] in Serum or Plasma 25 MEQ/L 22 - 30 [facility] Glucose [Mass/volume] in Serum or Plasma 101 MG/DL 65 - 110 [facility] BUN 20 MG/DL 7 - 21 [facility] Creatinine [Mass/volume] in Serum or Plasma 1.0 MG/DL 0.7 - 1.5 [facility] BUN/CREAT 20 8 - 27 [facility] Protein [Mass/volume] in Serum or Plasma 7.1 G/DL 6.3 - 8.2 [facility] Albumin [Mass/volume] in Serum or Plasma 4.8 G/DL 3.9 - 5.0 [facility] Globulin [Mass/volume] in Serum by calculation 2.3 GM/DL 2.4 - 3.2 L [facility] A/G RATIO 2.1 0.8 - 2.0 H [facility] Calcium [Mass/volume] in Serum or Plasma 10.0 MG/DL 8.4 - 10.2 [facility] Bilirubin.total [Mass/volume] in Serum or Plasma <0.7 MG/DL 0.2 - 1.3 [facility] Alkaline phosphatase [Enzymatic activity/volume] in Serum or Plasma 124 U/L 38 - 126 [facility] Aspartate aminotransferase [Enzymatic activity/volume] in Serum or Plasma 22 U/L 5 - 40 [facility] Alanine aminotransferase [Enzymatic activity/volume] in Seru m or Plasma 20 U/L 7 - 56 [facility] Anion gap 3 in Serum or Plasma 11.0 mmol/L 8.0 - 16.0 [facility] AGE 43 yrs [facility] NON-AA GFR >60 mL/min [facility] AFR AMER GFR >60 mL/min [facility] Male GFR In terprentation 20-49 yrs >60 mL/min Normal 50-59 yrs >56 mL/min Normal 60-69 yrs >49 mL/min Normal 70-79yrs >42 mL/min Normal 80 and above >35 mL/min Normal Female GFR Interpretation 20-39 yrs >60 mL/min Normal 40-49 yrs >58 mL/min Normal 50-59 yrs >51 mL/min Normal 60-69 yrs >45 mL/min Normal 70-79 yrs >39 mL/min Normal 80 and above >32 mL/min Normal ID Date Data Source [id number] 10/01/2019 07:06:00 PM EDT [facility] Name Value Range Interpretation Code Description Data Devika rce(s) Supporting Document(s) Hemoglobin A1c/Hemoglobin.total in Blood 5.3 % 4.4 - 6.1 [facility] {A1]{HB] ID Date Data Source [id number] 10/01/2019 06:32:00 PM EDT [facility] Name Value Range Interpretation Code Description Data Devika rce(s) Supporting Document(s) CBC W/AUTOMATED DIFF [facility] COMPLETE BLOOD COUNT Leukocytes [#/volume] in Blood by Automated count 4.0 10^3/uL 4.2 - 1 1.0 L [facility] Erythrocytes [#/volume] in Blood by Automated count 4.82 10^6/uL 4. 20 - 5.40 [facility] Hemoglobin [Mass/volume] in Blood 15.6 g/dL 12.0 - 16.0 [facility] Hematocrit [Volume Fraction] of Blood by Automated count 46.7 % 3 7.0 - 47.0 [facility] Erythrocyte mean corpuscular volume [Entitic volume] by Auto mated count 96.9 fL 81.0 - 101 [facility] Erythrocyte mean corpuscular hemoglobin [Entitic mass] by Automated count 32.4 pg 27.0 - 34.0 [facility] Erythrocyte mean corpuscular hemoglobin concentration [Mass/volume] by Automated count 33.4 g/dL 31.0 - 36.0 [facility] Erythrocyte distribution width [Ratio] by Automated count 12.3 % 11.5 - 14.5 [facility] Platelets [#/volume] in Blood by Automated count 304 10^3/uL 150 - 45 0 [facility] Platelet mean volume [Entitic volume] in Blood by Automated count 9.6 fL 7.4 - 10.4 [facility] Neutrophils/100 leukocytes in Blood by Automated count 44.6 % 37. 0 - 80.0 [facility] Lymphocytes/100 leukocytes in Blood by Manual count 41.0 % 25.0 - 40.0 H [facility] Monocytes/100 leukocytes in Blood by Automated count 9.5 % 3.0 - 8.0 H [facility] Eosinophils/100 leukocytes in Blood by Automated count 3.3 % 0.0 - 7.0 [facility] Basophils/100 leukocytes in Blood by Automated count 1.3 % 0.0 - 2.5 [facility] %IG 0.3 % 0.0 - 0.0 [facility] %[facility] 0.0 % 0.0 - 0.0 [facility] Neutrophils [#/volume] in Blood by Automated count 1.78 10^3/uL 2.00 - 6.90 L [facility] Lymphocytes [#/volume] in Blood by Automated count 1.63 10^3/uL 0.60 - 3.40 [facility] Monocytes [#/volume] in Blood by Automated count 0.38 10^3/uL 0.00 - 0.90 [facility] Eosinophils [#/volume] in Blood by Automated count 0.13 10^3/uL 0.00 - 0.70 [facility] Basophils [#/volume] in Blood by Automated count 0.05 10^3/uL 0.00 - 0.20 [facility] #IG 0.01 10^3/uL 0.00 - 0.10 [facility] ospital #NRBC 0.00 10^3/uL 0.00 - 0.00 [facility] MANUAL DIFF NOT INDICATED [facility] RBC MORPH NOT INDICATED [facility] ID Date Data Source [id number] 04/03/2019 02:08:00 PM EST [facility] NIRMALA SANDY, ZULEMA [address] [place] [address] PHONE:[phone] FAX:[phone] NIRMALA SANDY, PNP [address] [place] [address] PHONE:[phone] FAX:[phone] Results sent to [phone] at 0719 on 04/04/19 by [id number] NIRMALA SANDY, ZULEMA [address] [place] [address] PHONE:[phone] FAX:[phone] Results sent to [phone] at 0719 on 04/04/19 by [id number] NIRMALA SANDY, ZULEMA [address] [place] [address] PHONE:[phone] FAX:[phone] Results sent to [phone] at 0719 on 04/04/19 by [id number] NIRMALA SANDY, ZULEMA [address] [place] [address] PHONE:[phone] FAX:[phone] Results sent to [phone] at 0719 on 04/04/19 by [id number] Name Value Range Interpretation Code Description Data Devika rce(s) Supporting Document(s) WHITE BLOOD COUNT 4.01 10^3/uL 4.00-10.50 [facility] RED BLOOD COUNT 5.03 10^6/uL 3.90-5.20 [facility] HEMOGLOBIN 16.2 G/DL 11.5-15.6 H [facility] HEMATOCRIT 47.8 % 35.0-46.0 H [facility] MCV 95.0 FL 80.0-100.0 N [facility] MCH 32.2 PG 27.0-34.0 N [facility] MCHC 33.9 G/DL 32-36 [facility] RDW 12.0 % 11.5-14.5 N [facility] PLATELET COUNT 295 10^3/uL 130-400 [facility] MPV 10.4 FL 8.7-13.2 N [facility] GRAN % (AUTO) 44.0 % 42.0-75.0 N [facility] LYMPH % (AUTO) 43.6 % 20.0-51.0 N [facility] MONO % (AUTO) 9.0 % 2.0-15.0 N [facility] EOS % (AUTO) 2.5 % 0.0-11.0 N [facility] BASO % (AUTO) 0.7 % 0.0-2.0 N [facility] IG % (AUTO) 0.2 % 1.00-5.00 [facility] IG # (AUTO) 0.0 10^3/uL <0.5 [facility] GRAN # (AUTO) 1.76 10^3/uL 1.50-6.50 N [facility] LYMPH # (AUTO) 1.8 k/uL 1.0-5.0 N [facility] MONO # (AUTO) 0.36 k/uL 0.20-1.50 N [facility] EOS # (AUTO) 0.10 10^3/uL 0.00-1.10 N [facility] BASO # (AUTO) 0.03 10^3/uL 0.00-0.20 N [facility] ID Date Data Source [id number] 04/04/2019 09:18:00 AM EST [facility] NIRMALA SANDY, PNP [address] [place] [address] PHONE:[phone] FAX:[phone] NIRMALA SANDY, PNP [address] [place] [address] PHONE:[phone] FAX:[phone] Results sent to [phone] at 0719 on 04/04/19 by [id number] NIRMALA SANDY, PNP [address] [place] [address] PHONE:[phone] FAX:[phone] Results sent to [id number] at 0719 on 04/04/19 by [id number] NIRMALA SANDY, PNP [address] [place] [address] PHONE:[phone] FAX:[phone] Results sent to [phone] at 0719 on 04/04/19 by [id number] NIRMALA SANDY, PNP [address] [place] [address] PHONE:[phone] FAX:[phone] Results sent to [phone] at 0719 on 04/04/19 by [id number] Name Value Range Interpretation Code Description Data Devika rce(s) Supporting Document(s) SODIUM 141 MEQ/L 135-145 [facility] POTASSIUM 3.8 MEQ/L 3.5-5.3 [facility] CHLORIDE 105 MEQ/L 94-110 [facility] CARBON DIOXIDE 28 MEQ/L 22-33 [facility] ANION GAP 12 5-16 [facility] BLOOD UREA NITRO 16 MG/DL 7-25 N [facility] CREATININE 1.0 MG/DL 0.6-1.4 [facility] GFR 60.2 ML/MIN [facility] Stage G2 - Mildly decreased kidney func tion The GFR is an estimate of the Glomerular Filtration Rate. It is an aid to assess a patient's renal function. It is not a conclusive diagnosis of kidney disease. GFR normal is >=90 The MDRD GFR calculation is considered valid between the ages of 18 and 75 years only. BUN/CREAT RATIO 16 8-36 [facility] GLUCOSE 96 MG/DL 70-100 [facility] CA 9.5 MG/DL 8.7-10.5 [facility] BILIRUBIN,TOTAL 0.6 MG/DL 0.1-1.3 [facility] AST 24 U/L 5-40 [facility] ALT 24 U/L 5-48 [facility] [facility] ALKALINE PHOSPHATASE 106 U/L 40-140 [facility] alth TOTAL PROTEIN 6.9 G/DL 5.9-8.3 [facility] ALBUMIN 4.9 G/DL 3.0-5.1 [facility] GLOBULIN 2.0 G/DL 1.5-3.5 [facility] ALB/GLOB RATIO 2.5 G/DL 1.0-2.7 [facility] ID Date Data Source [id number] 04/04/2019 09:18:00 AM [facility] NIRMALA SANDY PNP [address] [place] [address] PHONE:[phone] FAX:[phone] NIRMALA SANDY, ZULEMA [address] [place] [address] PHONE:[phone] FAX:[phone] Results sent to [address] [place] [address] at 0719 on 04/04/19 by [id number] NIRMALA SANDY, PNP [address] [place] [address] PHONE:[phone] FAX:[phone] Results sent to [phone] at 0719 on 04/04/19 by [id number] NIRMALA SANDY, PNP [address] [place], [place] [address] PHONE:[phone] FAX:[phone] Results sent to [phone] at 0719 on 04/04/19 by [id number] NIRMALA SANDY, PNP [address] [place], [place] [address] PHONE:[phone] FAX:[phone] Results sent to [phone] at 0719 on 04/04/19 by [id number] Name Value Range Interpretation Code Description Data Devika rce(s) Supporting Document(s) GLYCOSYLATED HGBA1C 5.5 % 4.1-6.5 [facility] ID Date Data Source [id number] 04/04/2019 09:18:00 AM [facility] NIRMALA SANDY, PNP [address] [place] [address] PHONE:[phone] FAX:[phone] NIRMALA SANDY, PNP [address] [place], [place] [address] PHONE:[phone] FAX:[phone] Results sent to [phone] at 0719 on 04/04/19 by [id number] NIRMALA SANDY, PNP [address] [place], [place] [address] PHONE:[phone] FAX:[phone] Results sent to [phone] at 0719 on 04/04/19 by [id number] NIRMALA SANDY, PNP [address] [place], [place] [address] PHONE:[phone] FAX:[phone] Results sent to [phone] at 0719 on 04/04/19 by [id number] NIRMALA SANDY, PNP [address] [place], [place] [address] PHONE:[phone] FAX:[phone] Results sent to [phone] at 0719 on 04/04/19 by [id number] Name Value Range Interpretation Code Description Data Devika rce(s) Supporting Document(s) TRIGLYCERIDES 108 MG/DL 45-150 [facility] CHOLESTEROL 202 MG/DL 125-200 [facility] LDL CHOLESTEROL 112 MG/DL 50-130 [facility] HDL CHOLESTEROL 68 MG/DL 32-96 [facility] CHOL/HDL RATIO 3.0 0-4.3 [facility] ID Date Data Source [id number] 04/04/2019 09:18:00 AM EST [facility] NIRMALA SANDY, PNP [address] [place] [address] PHONE:[phone] FAX:[phone] NIRMALA SANDY, PNP [address] [place] [address] PHONE:[phone] FAX:[phone] Results sent to [phone] at 0719 on 04/04/19 by [id number] NIRMALA SANDY, PNP [address] [place] [address] PHONE:[phone] FAX:[phone] Results sent to [phone] at 0719 on 04/04/19 by [id number] NIRMALA SANDY, PNP [address] [place] [address] PHONE:[phone] FAX:[phone] Results sent to [phone] at 0719 on 04/04/19 by [id number] NIRMALA SANDY, PNP [address] [place] [address] PHONE:[phone] FAX:[phone] Results sent to [phone] at 0719 on 04/04/19 by [id number] Name Value Range Interpretation Code Description Data Devika rce(s) Supporting Document(s) TSH 0.948 uIU/ML 0.470-4.200 [facility] Patients should not be tested for 71 ho urs post fluorescein dye angiography. A false depression of result may occur. Procedure Social History Code Duration Value Status Description Data Source(s ) Smoking 03/17/2019 01:15:58 PM EST Occasional tobacco sm oker (finding) completed Occasional tobacco smoker (finding) [facility] ([facility]) Vital Signs ID Date Data Source UNK Name Value Range Interpretation Code Description Data Source(s) Heart rate 88 /min 88 /min [facility] Diastolic blood pressure 66 mm[Hg] 66 mm[Hg] [facility] ([facility]) Systolic blood pressure 118 mm[Hg] 118 mm[Hg] [facility] ([facility]) Body surface area Derived from formula 2.03 m2 2.03 m2 [facility] ([facility]) Body mass index (BMI) [Ratio] 33.6 kg/m2 33.6 k g/m2 [facility] Body height 66 [in_i] 66 [in_i] [facility] ([facility]) 5'6" Body weight 94.519 kg 94.519 kg [facility] ([facility]) Body weight 208.38 [lb_av] 208.38 [lb_av] [facility] T ([facility]) Oxygen saturation in Arterial blood by Pulse oximetry 99 % 99 % [facility] ([facility]) Respiratory rate 18 /min 18 /min [facility] ( [facility]) Body temperature 96.4 [degF] 96.4 [degF] [facility] ([facility]) Body surface area Derived from formula 2.04 m2 2.04 m2 [facility] ([facility]) Body mass index (BMI) [Ratio] 33.7 kg/m2 33.7 k g/m2 [facility] ([facility]) Body height 66 [in_i] 66 [in_i] [facility] ([facility]) 5'6" Body weight 94.859 kg 94.859 kg [facility] ([facility]) Body weight 209.12 [lb_av] 209.12 [lb_av] [facility] T ([facility]) Oxygen saturation in Arterial blood by Pulse oximetry 99 % 99 % [facility] ([facility]) Respiratory rate 18 /min 18 /min [facility] ( [facility]) Body temperature 97.3 [degF] 97.3 [degF] [facility] ([facility]) Heart rate 94 /min 94 /min [facility] Diastolic blood pressure 80 mm[Hg] 80 mm[Hg] [facility] Systolic blood pressure 124 mm[Hg] 124 mm[Hg] [facility] ([facility]) Body surface area 2.04 m2 2.04 m2 [facility] ([facility]) Body surface area 2.01 m2 2.01 m2 [facility] Body mass index (BMI) [Ratio] 32.6 kg/m2 32.6 k g/m2 [facility] ([facility]) Body height 66 [in_i] 66 [in_i] [facility] ([facility]) 5'6" Body weight 91.741 kg 91.741 kg [facility] ([facility]) Body weight 202.25 [lb_av] 202.25 [lb_av] [facility] T ([facility]) Oxygen saturation in Arterial blood by Pulse oximetry 98 % 98 % [facility] ([facility]) Respiratory rate 16 /min 16 /min [facility] ( [facility]) Body temperature 98.2 [degF] 98.2 [degF] [facility] ([facility]) Heart rate 90 /min 90 /min [facility] ([facility]) Diastolic blood pressure 72 mm[Hg] 72 mm[Hg] [facility] ([facility]) Systolic blood pressure 116 mm[Hg] 116 mm[Hg] [facility] ([facility]) Body mass index (BMI) [Ratio] 32.3 kg/m2 32.3 k g/m2 [facility] ([facility]) Body height 66.5 [in_i] 66.5 [in_i] [facility] ([facility]) Body weight 92.079 kg 92.079 kg [facility] ([facility]) Body weight 203.00 [lb_av] 203.00 [lb_av] [facility] T ([facility]) Heart rate 83 /min 83 /min [facility] ([facility]) Diastolic blood pressure 83 mm[Hg] 83 mm[Hg] [facility] ([facility]) Systolic blood pressure 118 mm[Hg] 118 mm[Hg] M [facility] ([facility]) Body weight 92.081 kg 92.081 kg [facility] ([facility], ) Body mass index (BMI) [Ratio] 32.3 kg/m2 32.3 k g/m2 [facility] ([facility], ) Body weight 203.00 [lb_av] 203.00 [lb_av] [facility] T ([facility], ) Body height 66.5 [in_i] 66.5 [in_i] [facility] ([facility], ) 5'6.50" Heart rate 83 /min 83 /min [facility] ([facility], ) Diastolic blood pressure 83 mm[Hg] 83 mm[Hg] EVE ([facility], ) Systolic blood pressure 118 mm[Hg] 118 mm[Hg] Madeleine MCKAY ([facility], )
--- OUTSIDE RECORDS SUMMARY | 2020-04-15 23:00 | CCD ---
Author [facility] Address [address] [place] [address] Phone Care Team Providers Care Assault Amphibious Vehicle Officer Name Role Phone Provider, Unassigned Unavailable Unavailable Reason for Referral No Reason for Referral Recorded Problems Includes: Active, inactive, and resolved ProblemsNo Problems Recorded Plan of Treatment No Plan of Treatment Recorded Assessments Includes: Assessments for all patient encountersNo Assessments Recorded Instructions Instructions not supported for this document typeNo Instructions Recorded Medical Equipment - Implanted Devices Includes: Current and historical DevicesNo Medical Equipment Recorded Medications Includes: Current and historical Medications Current Medications (continue as prescribed) Chantix 0.5MG Oral Tablet 12/06/2017 Provider: Diagnosis: BusPIRone HCl 10MG Oral Tablet 12/06/2017 Provider: Diagnosis: TiZANidine HCl 2MG Oral Tablet 12/06/2017 Provider: Diagnosis: RaNITidine HCl 150MG Oral Capsule 12/06/2017 Provid er: Diagnosis: Medications Administered Includes: Administered Medications in patient's chartNo Administered Medications Recorded Vital Signs Includes: Vital Signs from 03/29/2019 through 03/29/2020No Vital Signs Recorded For Specified Dates Results Includes: Results from 03/29/2019 through 03/29/2020No Results Recorded For Specified Dates History of Present Illness History of Present Illness not supported for this document typeNo History of Present Illness Recorded Social History Description Last Updated Smoking status : Current some day smoker 03/17/2019 Procedures and Surgical History Includes: Procedures from 03/29/2019 through 03/29/2020 Procedures Code Diagnosis Performing Provider Service Location Service Date Nutritional Counseling D1310 Encounter for den alfreda exam and cleaning w/o abnormal findings Zena Browning [facility] 03/29/2020 Oral Hygiene/[facility] D1330 Encounter for de ntal exam and cleaning w/o abnormal findings Zena Browning [facility] 03/29/2020 Periodic Oral Evaluation D0120 Encounter for d ental exam and cleaning w/o abnormal findings Zena Browning [facility] 03/29/2020 Prophylaxis Adult D1110 Encounter for dental exam and cleaning w/o abnormal findings Zena Browning [facility] 03/29/2020 Periodontal Charting D0183 Encounter for denta l exam and cleaning w/o abnormal findings Zena Browning [facility] 03/29/2020 Oral Cancer Screening D0191 Encounter for dent al exam and cleaning w/o abnormal findings Zenadariel Browning [facility] 03/29/2020 Bitewing - 4 radiographic images D0274 Encount er for dental exam and cleaning w/o abnormal findings Zena Browning [facility] 03/29/2020 Medical History Includes: Medical History in patient's chartNo Medical History Recorded Family History Includes: Family History in patient's chartNo Family History Recorded Review of Systems Review of Systems not supported for this document typeNo Review of Systems Recorded Mental Status Mental Status not supported for this document typeNo Mental Status Recorded Functional Status Functional Status not supported for this document typeNo Functional Status Recorded Physical Exam Physical Exam not supported for this document typeNo Physical Exam Recorded Immunizations Includes: Immunizations in patient's chart Vaccine Dose # Date Site Reaction(s) Status Source Influenza 1 12/03/2018 Complete (Reported) Patient Note: Employee flu vaccine. [employer] Moderna COVID-19 1 02/24/2020 Right Deltoid Complete (Administered) [facility] Note: Administered 0.5ml rig ht deltoid, dosage confirmed with Sherrie Archibald, patient tolerated well. [facility] Moderna COVID-19 2 03/23/2020 Right Deltoid Complete (Administered) [facility] Note: Pt tolerated well Allergies Includes: Active, inactive, and resolved Allergies Substance Type Reaction Onset Date - Time Resolved Date - Ti me Status Topamax Allergy 12/06/2017 - 12:00AM Acti ve Contrast Dye Allergy 12/06/2017 - 12:00AM Ac tive Encounters Includes: Encounters from 03/29/2019 through 03/29/2020 Encounter Provider Location Date Check-In Time Check-Out Time D iagnosis Hygeine 45min Zena Nallely [facility] 03/29/2020 2:43PM 03/23/2020 11:59PM COVID 19 IMM Sherrie Archibald RN [facility] 03/23/2020 03/17/2019 3 :10PM 1:59PM COVID 19 IMM Sherrie Archibald RN [facility] 02/24/2020 03/17/2019 7 :30AM 8:26AM Insurance Includes: Active Insurance Policies Plan Name Member ID Group # Subscriber Relationship Effective Da alejandra 1 - D First Elio [id number] Tania Trevizo Self Advance Directives Includes: Current Advance Directives Directive Pat Aware Third Libertarian Effective Date Reviewed Status Ebola Screening Performed Yes 03/17/2019 Current and Verified Note: Within the last month, have you traveled outside of the [place]? - NO Health Concerns Includes: Active Health ConcernsNo Active Health Concerns Recorded Goals Includes: Active GoalsNo Active Goals Recorded Interventions Includes: Interventions for active GoalsNo Interventions Recorded Evaluations & Outcomes Includes: Evaluations & Outcomes for active GoalsNo Outcomes Recorded
[2020-04-15] MEDS ORDERED: NS 1,000 ML IV ONE (23:20)
[2020-04-15 23:40] LABS: BASO % 0.6 % (0.0-1.0); EOS # 0.2 10^3/uL (0.0-0.5); EOS % 2.2 % (0.0-3.0); HEMOGLOBIN 14.6 g/dl (12.0-15.5); LYMPH # 3.4 10^3/uL (1.5-5.0); LYMPH % 50.3 % (24.0-44.0); MEAN CORPUSCULAR HEMOGLOBIN 31.6 pg (27.0-33.0); MEAN CORPUSCULAR VOLUME 93.1 fl (80.0-96.0); MONO # 0.4 10^3/uL (0.0-0.8); MONO % 6.4 % (2.0-8.0); NEUTROPHILS # 2.7 10^3/uL (1.5-8.5); NEUTROPHILS % 40.4 % (36.0-66.0); PLATELET COUNT, AUTOMATED 326 10^3/uL (150-450); RED BLOOD COUNT 4.62 10^6/uL (4.00-5.40); WHITE BLOOD COUNT 6.7 10^3/uL (4.0-10.0)
[2020-04-15 23:51] LABS: INR 0.86; PROTHROMBIN TIME 11.9 SECONDS (12.5-14.3)
--- NOTE | 2020-04-15 23:55 | REPVR ---
PROCEDURE INFORMATION: Exam: XR Chest Exam date and time: 04/15/2020 11:36 PM Age: 44 years old Clinical indication: Other: Palpitations TECHNIQUE: Imaging protocol: XR of the chest Views: 1 view. COMPARISON: No relevant prior studies available. FINDINGS: Lungs: Unremarkable. No consolidation. Pleural spaces: Unremarkable. No pleural effusion. No pneumothorax. Heart/Mediastinum: Unremarkable. No cardiomegaly. Bones/joints: Unremarkable. IMPRESSION: No acute infiltrates. Electronically signed by: Luis Gorman On 04/15/2020 23:55:40 PM
[2020-04-15 23:56] LABS: PARTIAL THROMBOPLASTIN TIME 28.3 SECONDS (24.2-38.5)
[2020-04-16 00:08] LABS: BLOOD UREA NITROGEN 13 MG/DL (7-18); CALCIUM LEVEL 9.5 MG/DL (8.5-10.1); CARBON DIOXIDE LEVEL 29 MEQ/L (21-32); CHLORIDE LEVEL 107 MEQ/L (98-107); CK-MB VALUE MASS < 1.0 NG/ML (<3.6); CPK CREATINE PHOSPHOKINASE 119 U/L (26-192); CREATININE FOR GFR 0.94 MG/DL (0.55-1.30); FREE T4 1.21 NG/DL (0.76-1.46); GLOMERULAR FILTRATION RATE > 60.0 (>58); GLUCOSE, FASTING 130 MG/DL (70-100); MB/CK RELATIVE INDEX 0.84 (< OR =4); NT-PRO BNP 27 PG/ML (<125); POTASSIUM SERUM 3.7 MEQ/L (3.5-5.1); SODIUM LEVEL 142 MEQ/L (136-145); THYROID STIMULATING HORMONE 0.767 uIU/ML (0.358-3.740); TROPONIN I < 0.02 NG/ML (< 0.10)
[2020-04-16] MEDS ORDERED: FAMO20TA PO (00:10)
[2020-04-16] MEDS ORDERED: TIZA4TAB4 PO (00:10)
--- OUTSIDE RECORDS SUMMARY | 2020-04-16 00:28 | CCD ---
Author Author [facility] Organization [facility] Address Unknown Phone Unavailable Care Team Providers Care Melt Helper Name Role Phone DAVI MEJIA MD Unavailable [...] MAQBOOL MARK MD Unavailable Unavailable JACKIE, MAQBOOL MAKR MD Unavailable Unavailable JACKIE, MAQBOOL MARK MD [...] Unavailable JACKIE, MAQBOOL MARK MD Unavailable Unavailable JAKCIE, MAQBOOL MARK MD Unavailable Unavailable JACKIE, MAQBOOL MRAK MD Unavailable Unavailable JACKIE, MAQBOOL MARK MD [...] MAQBOOL MARK MD Unavailable Unavailable JACKIE, MAQBOOL MAKR MD Unavailable Unavailable JACKIE, MAQBOOL MARK MD Unavailable Unavailable JACKIE, MAQBOOL MARK MD Unavailable Unavailable JACKIE, MAQBOOL MARK MD Unavailable Unavailable JACKIE, MAQBOOL MARK MD Unavailable Unavailable JACKIE, MAQBOOL MARK MD Unavailable Unavailable JACKIE, MAQBOOL MARK MD Unavailable Unavailable JACKIE, MAQBOOL MARK MD Unavailable Unavailable [facility] Unavailable Dragan, Swetha Samina ANP-BC Unavailable [...] Dragan, Swetha Samina ANP-BC Unavailable Unavailable Dragan, Wsetha Samina ANP-BC Unavailable Unavailable Dragan, Swetha Samina [...] is protected by Article 27-F of the [facility] Public Health law. If you continue you may have access to information: Regarding HIV / AIDS; Provided by facilities licensed or operated by the [facility] Office of Mental Health; or Provided by the [facility] Office for People With Developmental Disabilities. If such information is present, then the following [facility] mandated warning applies: This information has been [...] law may result in a fine or correction sentence or both. A general authorization for the release of medical or other information is NOT sufficient authorization for further disc losure. 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 -NO Allergies and Adverse Reactions Type Description Substance Reaction Status Data Source(s ) Drug Allergy Drug Allergy NKDA [facility] ([facility], ) Family History Family Member Name Family Member Gender Family Member Status Date o f Status Description Data Source(s) Unknown Male Problem [facility] ([facility]) Unknown Unknown Problem [facility] ([facility] Unknown Unknown Problem [facility] ([facility]) Unknown Unknown Problem [facility] ([facility]) Unknown Unknown Problem [facility] ([facility]) Unknown Unknown Problem [facility] ([facility]) Encounters Encounter Providers Location Date Indications Data Source(s ) Outpatient<td ID="encounterTypeDescripti onID0">Hygeine 45min</td><td>Zena Browning [facility]</td><td>[facility]</td><td>03/29/2020</td><td>2:43PM</td><td>03/23/2020 11:59PM</td><td></td> Attender: Zena Browning [facility] 03/29/19 02:43:00 PM EST - 03/23/2020 11:59:00 PM EST [place] ([facility]) Outpatient Attender: Samina SILVESTRE 12/21 09:40:00 AM EST - 01/14/2020 09:40:00 AM EST [facility] Outpatient Attender: Samina SILVESTRE 09/19 08:01:00 AM EDT - 10/08/2019 08:01:00 AM EDT [facility] Outpatient Attender: Samina SILVESTRE 09/19 08:12:00 AM EDT - 10/01/2019 08:12:00 AM EDT [facility] [address] [place] [id number] 08/20/2019 12:00:00 AM EDT eCW1 ([facility]) Outpatient Attender: Samina SILVESTRE 03/22 11:11:00 AM EST - 04/09/2019 11:11:00 AM EST [facility] Outpatient Attender: Samina SILVESTRE [facility] 03/22 10:20:00 AM EST [facility] ([facility]) Outpatient Attender: MARK MEJIA MD 04/02/2019 07:40:00 A M EST [facility] Outpatient<td ID="encounterTypeDescripti onID1">COVID 19 IMM</td><td>Sherrie Archibald RN</td><td>[facility]</td><td>03/23/2020</td><td>03/17/2019 3:10PM</td><td>1:59PM</td><td></td> Attender: [facility]BEL[facility] 03/17/2019 03:10:00 PM EST - 03/23/2020 01:59:09 PM EST [place] ([facility]) Unknown<td ID="encounterTypeDescriptionI D0">H Child Prophy</td><td>Zena Browning [facility]</td><td>[facility]</td><td>03/17/2019</td><td></td> [facility]17/[facility] 01:01:00 PM EST - 03/17/2019 11:59:00 PM EST [place] ([facility] ) Outpatient<td ID="encounterTypeDescripti onID2">COVID 19 IMM</td><td>Sherrie Archibald RN</td><td>[facility]</td><td>02/24/2020</td><td>03/17/2019 7:30AM</td><td>8:26AM</td><td></td> Attender: Sherrie Archibald RN [facility] 03/17/2019 07:30:00 AM EST - 02/24/2020 08:26:01 AM EST [place] ([facility]) Outpatient Attender: Samina Archibald [facility] 12/21 02:27:00 PM EST - 01/15/2019 02:27:00 PM [facility] Immunizations Vaccine Date Status Description Data Source(s) Fransisco COVID-19 03/23/2020 01:44:00 PM EST completed Moderna COVID- 19 2 03/23/2020 Right Deltoid Complete (Administered) [facility] [place] ([facility]) Note: Pt tolerated well Shabnama COVID-19 02/24/2020 07:52:00 AM EST completed Moderna [...] BY MOUTH TWICE A DAY SOLD: 10/19/2019 [facility] 0.5 mg (11)- 1 mg (42) 10/14/2019 12:00:00 AM EDT tablets,do se pack 53 TAKE PER PACKAGE INSTRUCTIONS TAKE PER PACKAGE INSTRUCTIONS SOLD: 10/19/2019 [facility] Chantix Continuing Month Zev Chantix Continuing Month Zev 12:00:00 AM EDT ORAL active [facility] ([facility]) Chantix Starting Month Zev Chantix Starting Month Zev 2019 12:00:00 AM EDT completed [facility] ([facility]) 50 mcg/actuation 06/04/2019 12:00:00 AM EDT [...] 03/12/2019 12:00:00 AM EST ORAL active [facility] ([facility]) 100 mg 01/17/2019 12:00:00 AM EST [...] type / Coverage type Policy ID Covered green party ID Covered green party's relationship to barnes Policy [place] Plan Information BCBS [place] PPO 302/307 [id number] SP [id number] EXCELLUS [facility] BS [id number] 18 [id number] BLUE CROSS BLUE SHIELD -O/P BS [id number] 18 [id number] EXCELLUS BCBS B [id number] S VYS [id number] SELF PAY BLUE CROSS [id number] SP [id number] D [facility] CHP/Essential Plan P [id number] S [id number] SELF PAY BLUE CROSS [id number] SP [id number] [facility] Commercial [id number] Self [id number] ANSI-Commercial [id number] ANSI-Commercial [id number] [facility] Commercial [id number] Self [id number] ANSI-Commercial [id number] BLUE CROSS [id number] SP [id number] BCBS [place] PPO 302/307 [id number] SP [id number] [facility] COMMUNITY PLAN [id number] Self Pay P UNAVAILABLE S UNAVAILA BLE [facility] [id number] SP [id number] [facility] [id number] SP [id number] BCBS/Excellus Commercial Self BCBS/Excellus Medigap Part B Self D Guardian P [id number] S [id number] BCBS DUC RUELAS PPO 302/307 [id number] [id number] [facility] [id number] SP [id number] Self Pay P [id number] S [id number] Sliding Fee Scale P [id number] S [id number] BCBS/Excellus Commercial Self Sliding Fee Scale P UNAVAILABLE S UNAVAILABLE Managed Care BCBS S [id number] S [id number] Medicaid P [id number] S [id number] D [facility] Care [facility] S [id number] S [id number] D [facility] Care Healthplex O [id number] S [id number] Medicaid Dental O [id number] S [id number] Excellus BCYO O [id number] S [id number] HMO BLUE [id number] SP [id number] Problems, Conditions, and Diagnoses Code Display Name Description Problem Type Effective Dates Data Source(s) 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 O ther halfway (current) drug therapy Diagnosis 10/01/2019 08:12:00 AM [facility] F419 Anxiety disorder, unspecified Anxiety disorder, unspec ified Diagnosis 10/01/2019 08:12:00 AM [facility] E7800 Pure hypercholesterolemia, unspecified P ure hypercholesterolemia, unspecified Diagnosis 10/01/2019 08:12:00 AM [facility] R12 Heartburn Heartburn Diagnosis 04/09/2019 11:11:00 AM [facility] G4700 Insomnia, unspecified Insomnia, unspecified Diagnosis 04/09/2019 11:11:00 AM [facility] F329 Major depressive disorder, single episod e, unspecified Major depressive disorder, single episode, unspecified Diagnosis 04/09/2019 11:11:00 AM [facility] M519 Unspecified thoracic, thorac olumbar and lumbosacral intervertebral disc disorder Unspecified thoracic, thoracolumbar and lumbosacral intervertebral disc disorder Diagnosis 04/09/2019 11:11:00 AM EST [facility] E78.00 Pure hypercholesterolemia, unspecified E 78.00 - Pure hypercholesterolemia, unspecified Diagnosis 04/02/2019 07:40:00 AM EST [facility] Surgeries/Procedures Procedure Description Date Indications Data Source(s) Bitewing - 4 radiographic images Bitewing - 4 radiographic i mages 03/29/2020 12:00:00 AM EST [place] ([facility]) Oral Cancer Screening Oral Cancer Screening 03/29/2020 12:00:00 AM EST [place] ([facility]) Periodontal Charting Periodontal Charting 03/29/2020 12:00:00 AM ES T [place] ([facility]) Prophylaxis Adult Prophylaxis Adult 03/29/2020 12:00:00 AM EST [place] ([facility]) Periodic Oral Evaluation Periodic Oral Evaluation 03/29/2020 12:00: 00 AM EST [facility] ([facility]) Oral Hygiene/[facility] Inst Oral Hygiene/[facility] Inst 03/29/2020 12:00:00 AM EST [place] ([facility]) Nutritional Counseling Nutritional Counseling 03/29/2020 12:00:00 A M EST [place] ([facility]) Brief Emotional/Behav Assessment W/ Scoring Doc Per Standard Inst 01/14/2020 12:00:00 AM EST [facility] ([facility]) Results ID Date Data Source [id number] 01/10/2020 08:49:00 AM EST [facility] ([facility]) Name Value Range Interpretation Code Description Data Devika rce(s) Supporting Document(s) Hemoglobin A1c 5.3 % Normal (applies to non-numeric r esults) [facility] <content>REFERENCE RANGES:</content><br/ ><content></content>
<content><=5.6% NORMAL</content>
<content>5.7-6.4% SUGGESTS IMPAIRED GLUCOSE METABOLISM/PREDIABETIC</content>
<content>>= 6.5% ABNORMAL</content>
<content></content> Estimated Average Glucose 105 mg/dL 60-110 Normal (applies to non-numeric results) [facility] ([facility]) ID Date Data Source [id number] 01/10/2020 08:49:00 AM EST [facility] ([facility]) Name Value Range Interpretation Code Description Data Devika rce(s) Supporting Document(s) Thyrotropin [Units/volume] in Serum or Plasma 1.260 uIU/ML 0. 358-3.740 Normal (applies to non-numeric results) [facility] ID Date Data Source [id number] 01/10/2020 08:49:00 AM EST [facility] ([facility]) Name Value Range Interpretation Code Description Data Devika rce(s) Supporting Document(s) Triglycerides Level 150 mg/dL Normal (applies to non-nume alexys results) [facility] Cholesterol Level 216 mg/dL Above high normal [facility] HDL Cholesterol 74 mg/dL Normal (applies to non-numeric results) [facility] ([facility]) Cholesterol Risk Ratio 2.918 Normal (applies to non-n umeric results) [facility] Non-HDL-C 142 mg/dL Normal (applies to non-numeric resul ts) [facility] LDL Cholesterol 112 mg/dL Above high normal [facility]) ID Date Data Source [id number] 01/10/2020 08:49:00 AM EST [facility] ([facility]) Name Value Range Interpretation Code Description Data Devika rce(s) Supporting Document(s) Creatinine For GFR 0.93 mg/dL 0.55-1.30 Normal (applies to non -numeric results) [facility]) Glucose, Fasting 96 mg/dL 70-100 Normal (applies to non-numeric results) [facility] ([facility]) Blood Urea Nitrogen 12 mg/dL 7-18 Normal (applies to non-nume alexys results) [facility] ([facility]) Sodium Level 138 meq/L 136-145 Normal (applies to non-numeric res ults) [facility] Glomerular Filtration Rate Laboratory test result Normal (applies to non- numeric results) [facility] ([facility]) <content>Units are mL/min/1.73 m2</content>
<content></content>
<content>Chronic Kidney Disease Staging per NKF:</content>
<content></content>
<content>Stage I & II GFR >=60 Normal to Mildly Decreased</content>
<content>Stage III GFR 30- 59 Moderately Decreased</content>
<content>Stage IV GFR 15-29 Severely Decreased</content>
<content>Stage V GFR <15 Very Little GFR Left</content>
<content>ESRD GFR <15 on MORTICIAN SUPPLIES SALES REPRESENTATIVE</content>
<content></content> Potassium Serum 4.1 meq/L 3.5-5.1 Normal (applies to non-numeric results) [facility] ([facility]) Chloride Level 104 meq/L 98-107 Normal (applies to non-numeric r esults) [facility] ([facility]) Anion Gap 6 meq/L 8-16 Below low normal [facility] ( [facility]) Carbon Dioxide Level 28 meq/L 21-32 Normal (applies to non-num hunter results) [facility] ([facility]) Calcium Level 9.3 mg/dL 8.5-10.1 Normal (applies to non-numeric re sults) [facility] ([facility]) Alt/SGPT 23 U/L 12-78 Normal (applies to non-numeric resul ts) [facility] ([facility]) Ast/Sgot 18 U/L 7-37 Normal (applies to non-numeric resul ts) [facility] ([facility]) Bilirubin,Total 0.6 mg/dL 0.2-1.0 Normal (applies to non-numeric results) [facility] ([facility]) Alkaline Phosphatase 127 U/L 45-117 Above high normal [facility] ([facility]) Albumin 4.2 GM/DL 3.2-5.2 Normal (applies to non-numeric resul ts) [facility] ([facility]) Albumin/Globulin Ratio 1.4 1.2-2.2 Normal (applies to non-n umeric results) [facility] ([facility]) Total Protein 7.2 GM/DL 6.4-8.2 Normal (applies to non-numeric re sults) [facility] ([facility]) ID Date Data Source [id number] 01/10/2020 08:49:00 AM EST [facility] ([facility]) Name Value Range Interpretation Code Description Data Devika rce(s) Supporting Document(s) Neutrophils % 46.1 % 36.0-66.0 Normal (applies to non-numeric re sults) [facility] ([facility]) Lymph % 41.6 % 24.0-44.0 Normal (applies to non-numeric resul ts) [facility] ([facility]) Eos % 2.6 % 0.0-3.0 Normal (applies to non-numeric resul ts) [facility] ([facility]) Baso % 0.8 % 0.0-1.0 Normal (applies to non-numeric resul ts) [facility] ([facility]) Adair % 8.6 % 0.0-5.0 Above high normal [facility] ([facility]) Neutrophils # 2.8 10 1.5-8.5 Normal (applies to non-numeric re sults) [facility] ([facility]) Immature Granulocyte % 0.3 % 0-3.0 Normal (applies to non-n umeric results) [facility] ([facility]) Lymph # 2.5 10 1.5-5.0 Normal (applies to non-numeric resul ts) [facility] ([facility]) Baso # 0.1 10 0.0-0.2 Normal (applies to non-numeric resul ts) [facility] ([facility]) Adair # 0.5 10 0.0-0.8 Normal (applies to non-numeric resul ts) [facility] ([facility]) Eos # 0.2 10 0.0-0.5 Normal (applies to non-numeric resul ts) [facility] ([facility]) ID Date Data Source [id number] 01/10/2020 08:49:00 AM EST [facility] ([facility]) Name Value Range Interpretation Code Description Data Devika rce(s) Supporting Document(s) Red Blood Count 4.72 10 4.00-5.40 Normal (applies to non-numeric results) [facility] ([facility]) Hemoglobin 15.3 g/dL 12.0-15.5 Normal (applies to non-numeric resul ts) [facility] ([facility]) White Blood Count 6.0 10 4.0-10.0 Normal (applies to non-numeri c results) [facility] ([facility]) Mean Corpuscular Hemoglobin 32.4 pg 27.0-33.0 Norm al (applies to non-numeric results) [facility] ([facility]) Hematocrit 48.1 % 36.0-47.0 Above high normal [facility] ([facility]) Mean Corpuscular Volume 101.9 fl 80.0-96.0 Above high normal [facility] ([facility]) Red Cell Distribution Width 13.4 % 11.5-14.5 Norm al (applies to non-numeric results) [facility] Mean Corpuscular HGB Conc 31.8 g/dL 32.0-36.5 Below low normal [facility] ([facility]) Platelet Count, Automated 371 10 150-450 Normal (applies to non-numeric results) [facility] Nucleated Red Blood Cell % 0.0 % 0-0 Normal (applies to n on-numeric results) [facility] ([facility]) ID Date Data Source [id number] 10/01/2019 08:15:00 AM EDT [facility] Name Value Range Interpretation Code Description Data Devika rce(s) Supporting Document(s) Triglycerides 112 mg/dL 35-160 [facility] ([facility]) Is patient fasting? Y Cholesterol 216 mg/dL 131-200 Above high normal [facility] Is patient fasting? Y Cve Panel Laboratory test result [facility] Is patient fasting? Y Risk Factor 3.0 3.2-4.4 Below low normal [facility] ([facility]) Is patient fasting? Y HDL 72 mg/dL 29-86 [facility] ([facility]) Is patient fasting? Y LDL 121 mg/dL 65-175 [facility] Is patient fasting? Y LDL/HDL 1.68 1.47-3.22 [facility] ([facility]) Is patient fasting? Y ID Date Data Source [id number] 10/01/2019 08:15:00 AM EDT [facility] ([facility]) Name Value Range Interpretation Code Description Data Devika rce(s) Supporting Document(s) Hemoglobin A1c/Hemoglobin.total in Blood 5.3 % 4.4-6.1 [facility] ([facility]) Is patient fasting? Y Thyrotropin [Units/volume] in Serum or Plasma 0.98 uIU/mL 0.47-5.01 [facility] ([facility]) Is patient fasting? Y ID Date Data Source [id number] 10/01/2019 08:15:00 AM EDT [facility] ([facility]) Name Value Range Interpretation Code Description Data Devika rce(s) Supporting Document(s) Potassium 4.4 meq/L 3.6-5.0 [facility] ([facility]) Is patient fasting? Y Comprehensive Metabo Laboratory test result [facility] ([facility]) Is patient fasting? Y Sodium 139 meq/L 134-153 [facility] ([facility]) Is patient fasting? Y Co2 25 meq/L 22-30 [facility] ([facility]) Is patient fasting? Y Glucose 101 mg/dL 65-110 [facility] ([facility]) Is patient fasting? Y Chloride 103 meq/L 98-107 [facility] ([facility]) Is patient fasting? Y BUN/Creat 20 8-27 [facility] ([facility]) Is patient fasting? Y BUN 20 mg/dL 7-21 [facility] ([facility]) Is patient fasting? Y Creatinine 1.0 mg/dL 0.7-1.5 [facility] ([facility]) Is patient fasting? Y Albumin 4.8 g/dL 3.9-5.0 [facility] ([facility]) Is patient fasting? Y Total Protein 7.1 g/dL 6.3-8.2 [facility] ([facility]) Is patient fasting? Y Globulin 2.3 GM/DL 2.4-3.2 Below low normal [facility] ( [facility]) Is patient fasting? Y A/G Ratio 2.1 0.8-2.0 Above high normal [facility] ([facility]) Is patient fasting? Y Alkaline Phos 124 U/L 38-126 [facility] ([facility]) Is patient fasting? Y Total Bili Laboratory test result 0.2-1.3 [facility] ([facility]) Is patient fasting? Y Calcium 10.0 mg/dL 8.4-10.2 [facility] ([facility]) Is patient fasting? Y Anion Gap 11.0 mmol/L 8.0-16.0 [facility] ([facility]) Is patient fasting? Y SGPT/Alt 20 U/L 7-56 [facility] ([facility]) Is patient fasting? Y Sgot/Ast 22 U/L 5-40 [facility] ([facility]) Is patient fasting? Y Age 43 yrs [facility] ([facility]) Is patient fasting? Y Afr Amer GFR Laboratory test result [facility] ([facility]) Is patient fasting? Y Non-Aa GFR Laboratory test result [facility] ([facility]) Is patient fasting? Y ID Date Data Source [id number] 10/01/2019 08:15:00 AM EDT [facility] ([facility]) Name Value Range Interpretation Code Description Data Devika rce(s) Supporting Document(s) CBC W/Automated Diff Laboratory test result [facility] ([facility]) Is patient fasting? Y WBC 4.0 10^3/uL 4.2-11.0 Below low normal [facility] ([facility]) Is patient fasting? Y Hemoglobin 15.6 g/dL 12.0-16.0 [facility] ([facility]) Is patient fasting? Y Hematocrit 46.7 % 37.0-47.0 [facility] ([facility]) Is patient fasting? Y RBC 4.82 10^6/uL 4.20-5.40 [facility] ([facility]) Is patient fasting? Y MCV 96.9 fL 81.0-101 [facility] ([facility]) Is patient fasting? Y RDW 12.3 % 11.5-14.5 [facility] ([facility]) Is patient fasting? Y MCHC 33.4 g/dL 31.0-36.0 [facility] ([facility]) Is patient fasting? Y MCH 32.4 pg 27.0-34.0 [facility] ([facility]) Is patient fasting? Y MPV 9.6 fL 7.4-10.4 [facility] ([facility]) Is patient fasting? Y Neut 44.6 % 37.0-80.0 [facility] ([facility]) Is patient fasting? Y Platelets 304 10^3/uL 150-450 [facility] ([facility]) Is patient fasting? Y Lymph 41.0 % 25.0-40.0 Above high normal [facility] ([facility]) Is patient fasting? Y Adair 9.5 % 3.0-8.0 Above high normal [facility] ([facility]) Is patient fasting? Y Eos 3.3 % 0.0-7.0 [facility] ([facility]) Is patient fasting? Y %Ig 0.3 % 0.0-0.0 Above high normal [facility] ([facility]) Is patient fasting? Y %NRBC 0.0 % 0.0-0.0 [facility] ([facility]) Is patient fasting? Y Baso 1.3 % 0.0-2.5 [facility] ([facility]) Is patient fasting? Y #Adair 0.38 10^3/uL 0.00-0.90 [facility] ([facility]) Is patient fasting? Y #Neut 1.78 10^3/uL 2.00-6.90 Below low normal [facility] ([facility]) Is patient fasting? Y #Lymph 1.63 10^3/uL 0.60-3.40 [facility] ([facility]) Is patient fasting? Y #Ig 0.01 10^3/uL 0.00-0.10 [facility] ([facility]) Is patient fasting? Y #Baso 0.05 10^3/uL 0.00-0.20 [facility] ([facility]) Is patient fasting? Y #Eos 0.13 10^3/uL 0.00-0.70 [facility] ([facility]) Is patient fasting? Y RBC Morph Laboratory test result [facility] ([facility]) Is patient fasting? Y #NRBC 0.00 10^3/uL 0.00-0.00 [facility] ([facility]) Is patient fasting? Y Manual Diff Laboratory test result [facility] ([facility]) Is patient fasting? Y ID Date Data Source [id number] 10/01/2019 07:23:00 PM EDT [facility] Name Value Range Interpretation Code Description Data Devika rce(s) Supporting Document(s) Thyrotropin [Units/volume] in Serum or Plasma by Detec tion limit <= 0.05 mIU/L 0.98 uIU/mL 0.47 - 5.01 [facility] ID Date Data Source [id number] 10/01/2019 07:09:00 PM EDT [facility] Name Value Range Interpretation Code Description Data Devika rce(s) Supporting Document(s) CVE PANEL [facility] al LIPID PANEL Cholesterol [Mass/volume] in Serum or Plasma 216 MG/DL 131 - 200 H [facility] Deprecated Triglyceride [Mass/volume] in Serum or Plasma 112 MG/DL 3 5 - 160 [facility] HDL 72 MG/DL 29 - 86 [facility] Cholesterol in LDL [Mass/volume] in Serum or Plasma by Direc t assay 121 mg/dL 65 - 175 [facility] Cholesterol.total/Cholesterol in HDL [Mass Ratio] in Serum o r Plasma 3.0 3.2 - 4.4 L [facility] LDL/HDL 1.68 1.47 - 3.22 [facility] ital CVE RISK CHOL/HDL LDL/HDLMEN: 1/2 AVERAGE 3.43 1.00 AVERAGE 4.97 3.55 2X AVERAGE 9.55 6.25 3X AVERAGE 23.99 7.99WOMEN: 1/2 AVERAGE 3.27 1.47 AVERAGE 4.44 3.22 2X AVERAGE 7.05 5.03 3X AVERAGE 11.04 6.14 ID Date Data Source [id number] 10/01/2019 07:09:00 PM EDT [facility] Name Value Range Interpretation Code Description Data Devika rce(s) Supporting Document(s) COMPREHENSIVE METABOLIC PANEL [facility] COMPREHENSIVE METABOLIC PANEL Sodium [Moles/volume] in Serum or Plasma 139 mEq/L 134 - 153 [facility] Potassium [Moles/volume] in Serum or Plasma 4.4 mEq/L 3.6 - 5.0 [facility] Chloride [Moles/volume] in Serum or Plasma 103 mEq/L 98 - 107 [facility] Carbon dioxide, total [Moles/volume] in Serum or Plasma 25 MEQ/L 22 - 30 [facility] Glucose [Mass/volume] in Serum or Plasma 101 MG/DL 65 - 110 [facility] BUN 20 MG/DL 7 - 21 [facility] Creatinine [Mass/volume] in Serum or Plasma 1.0 MG/DL 0.7 - 1.5 [facility] BUN/CREAT 20 8 - 27 [facility] al Protein [Mass/volume] in Serum or Plasma 7.1 G/DL 6.3 - 8.2 [facility] Albumin [Mass/volume] in Serum or Plasma 4.8 G/DL 3.9 - 5.0 [facility] Globulin [Mass/volume] in Serum by calculation 2.3 GM/DL 2.4 - 3.2 L [facility] A/G RATIO 2.1 0.8 - 2.0 H [facility] Calcium [Mass/volume] in Serum or Plasma 10.0 MG/DL 8.4 - 10.2 [facility] Bilirubin.total [Mass/volume] in Serum or Plasma <0.7 MG/DL 0.2 - 1.3 [facility] Alkaline phosphatase [Enzymatic activity/volume] in Serum or Plasma 124 U/L 38 - 126 [facility] Aspartate aminotransferase [Enzymatic activity/volume] in Serum or Plasma 22 U/L 5 - 40 [facility] Alanine aminotransferase [Enzymatic activity/volume] in Seru m or Plasma 20 U/L 7 - 56 [facility] Anion gap 3 in Serum or Plasma 11.0 mmol/L 8.0 - 16.0 [facility] AGE 43 yrs [facility] NON-AA GFR >60 mL/min [facility] ital AFR AMER GFR >60 mL/min [facility] Ho spital Male GFR In terprentation [...] >32 mL/min Normal ID Date Data Source [id number] 10/01/2019 07:06:00 PM EDT [facility] Name Value Range Interpretation Code Description Data Devika rce(s) Supporting Document(s) Hemoglobin A1c/Hemoglobin.total in Blood 5.3 % 4.4 - 6.1 [facility] {A1]{HB] ID Date Data Source [id number] 10/01/2019 06:32:00 PM EDT [facility] Name Value Range Interpretation Code Description Data Devika rce(s) Supporting Document(s) CBC W/AUTOMATED DIFF [facility] COMPLETE BLOOD COUNT Leukocytes [#/volume] in Blood by Automated count 4.0 10^3/uL 4.2 - 1 1.0 L [facility] Erythrocytes [#/volume] in Blood by Automated count 4.82 10^6/uL 4. 20 - 5.40 [facility] Hemoglobin [Mass/volume] in Blood 15.6 g/dL 12.0 - 16.0 [facility] Hematocrit [Volume Fraction] of Blood by Automated count 46.7 % 3 7.0 - 47.0 [facility] Erythrocyte mean corpuscular volume [Entitic volume] by Auto mated count 96.9 fL 81.0 - 101 [facility] Erythrocyte mean corpuscular hemoglobin [Entitic mass] by Automated count 32.4 pg 27.0 - 34.0 [facility] Erythrocyte mean corpuscular hemoglobin concentration [Mass/volume] by Automated count 33.4 g/dL 31.0 - 36.0 [facility] Erythrocyte distribution width [Ratio] by Automated count 12.3 % 11.5 - 14.5 [facility] Platelets [#/volume] in Blood by Automated count 304 10^3/uL 150 - 45 0 [facility] Platelet mean volume [Entitic volume] in Blood by Automated count 9.6 fL 7.4 - 10.4 [facility] Neutrophils/100 leukocytes in Blood by Automated count 44.6 % 37. 0 - 80.0 [facility] Lymphocytes/100 leukocytes in Blood by Manual count 41.0 % 25.0 - 40.0 H [facility] Monocytes/100 leukocytes in Blood by Automated count 9.5 % 3.0 - 8.0 H [facility] Eosinophils/100 leukocytes in Blood by Automated count 3.3 % 0.0 - 7.0 [facility] Basophils/100 leukocytes in Blood by Automated count 1.3 % 0.0 - 2.5 [facility] %IG 0.3 % 0.0 - 0.0 [facility] %NRBC 0.0 % 0.0 - 0.0 [facility] al Neutrophils [#/volume] in Blood by Automated count 1.78 10^3/uL 2.00 - 6.90 L [facility] Lymphocytes [#/volume] in Blood by Automated count 1.63 10^3/uL 0.60 - 3.40 [facility] Monocytes [#/volume] in Blood by Automated count 0.38 10^3/uL 0.00 - 0.90 [facility] Eosinophils [#/volume] in Blood by Automated count 0.13 10^3/uL 0.00 - 0.70 [facility] Basophils [#/volume] in Blood by Automated count 0.05 10^3/uL 0.00 - 0.20 [facility] #IG 0.01 10^3/uL 0.00 - 0.10 [facility] #NRBC 0.00 10^3/uL 0.00 - 0.00 [facility] MANUAL DIFF NOT INDICATED [facility] RBC MORPH NOT INDICATED [facility] spital ID Date Data Source [id number] 04/03/2019 02:08:00 PM EST [facility] NIRMALA SANDY, ZULEMA [address] [place] [address] PHONE:[phone] FAX:[phone] NIRMALA SANDY, ZULEMA [address] [place] [address] PHONE:[phone] FAX:[phone] Results sent to [phone] at 0719 on 04/04/19 by [id number] NIRMALA SANDY, ZULEMA [address] [place] [address] PHONE:[phone] FAX:[phone] Results sent to [phone] at 0719 on 04/04/19 by [id number] NIRMALA SANDY, ZULEMA [address] [place] [address] PHONE:[phone] FAX:[phone] Results sent to [phone] at 0719 on 04/04/19 by [id number] NIRMALA SANDY, ZULEMA [address] [place] [address] PHONE:[phone] FAX:[phone] Results sent to [phone] at 0719 on 04/04/19 by [id number] Name Value Range Interpretation Code Description Data Devika rce(s) Supporting Document(s) WHITE BLOOD COUNT 4.01 10^3/uL 4.00-10.50 [facility] RED BLOOD COUNT 5.03 10^6/uL 3.90-5.20 [facility] HEMOGLOBIN 16.2 G/DL 11.5-15.6 [facility] HEMATOCRIT 47.8 % 35.0-46.0 [facility] MCV 95.0 FL 80.0-100.0 [facility] MCH 32.2 PG 27.0-34.0 [facility] MCHC 33.9 G/DL 32-36 [facility] RDW 12.0 % 11.5-14.5 [facility] PLATELET COUNT 295 10^3/uL 130-400 [facility] MPV 10.4 FL 8.7-13.2 [facility] GRAN % (AUTO) 44.0 % 42.0-75.0 [facility] LYMPH % (AUTO) 43.6 % 20.0-51.0 [facility] MONO % (AUTO) 9.0 % 2.0-15.0 [facility] EOS % (AUTO) 2.5 % 0.0-11.0 [facility] BASO % (AUTO) 0.7 % 0.0-2.0 [facility] IG % (AUTO) 0.2 % 1.00-5.00 [facility] IG # (AUTO) 0.0 10^3/uL <0.5 [facility] GRAN # (AUTO) 1.76 10^3/uL 1.50-6.50 [facility] LYMPH # (AUTO) 1.8 k/uL 1.0-5.0 [facility] MONO # (AUTO) 0.36 k/uL 0.20-1.50 [facility] EOS # (AUTO) 0.10 10^3/uL 0.00-1.10 [facility] BASO # (AUTO) 0.03 10^3/uL 0.00-0.20 [facility] ID Date Data Source [id number] 04/04/2019 09:18:00 AM EST [facility] NIRMALA SANDY, PNP [address] [place] [address] PHONE:[phone] FAX:[phone] NIRMALA SANDY, PNP [address] [place] [address] PHONE:[phone] FAX:[phone] Results sent to [phone] at 0719 on 04/04/19 by [id number] NIRMALA SANDY, PNP [address] [place] [address] PHONE:[phone] FAX:[phone] Results sent to [phone] at 0719 on 04/04/19 by [id number] NIRMALA SANDY, PNP [address] [place] [address] PHONE:[phone] FAX:[phone] Results sent to [phone] at 0719 on 04/04/19 by [id number] NIRMALA SANDY, PNP [address] [place] [address] PHONE:[phone] FAX:[phone] Results sent to [facility] at 0719 on 04/04/19 by [id number] Name Value Range Interpretation Code Description Data Devika rce(s) Supporting Document(s) SODIUM 141 MEQ/L 135-145 [facility] POTASSIUM 3.8 MEQ/L 3.5-5.3 [facility] CHLORIDE 105 MEQ/L 94-110 [facility] CARBON DIOXIDE 28 MEQ/L 22-33 [facility] ANION GAP 12 5-16 [facility] BLOOD UREA NITRO 16 MG/DL 7-25 N [facility] CREATININE 1.0 MG/DL 0.6-1.4 [facility] GFR 60.2 ML/MIN [facility] Stage G2 - Mildly decreased kidney func tion The GFR is an estimate of the Glomerular Filtration Rate. It is an aid to assess a patient's renal function. It is not a conclusive diagnosis of kidney disease. GFR normal is >=90 The MDRD GFR calculation is considered valid between the ages of 18 and 75 years only. BUN/CREAT RATIO 16 8-36 [facility] GLUCOSE 96 MG/DL 70-100 [facility] CA 9.5 MG/DL 8.7-10.5 [facility] BILIRUBIN,TOTAL 0.6 MG/DL 0.1-1.3 [facility] AST 24 U/L 5-40 [facility] ALT 24 U/L 5-48 [facility] ALKALINE PHOSPHATASE 106 U/L 40-140 [facility] alth TOTAL PROTEIN 6.9 G/DL 5.9-8.3 [facility] ALBUMIN 4.9 G/DL 3.0-5.1 [facility] GLOBULIN 2.0 G/DL 1.5-3.5 [facility] ALB/GLOB RATIO 2.5 G/DL 1.0-2.7 [facility] ID Date Data Source [id number] 04/04/2019 09:18:[address] [facility] NIRMALA SANDY PNP [address] [place] [address] PHONE:[phone] FAX:[phone] NIRMALA SANDY, ZULEMA [address] [place] [address] PHONE:[phone] FAX:[phone] Results sent to [address] [place] [address] at 0719 on 04/04/19 by [id number] NIRMALA SANDY, PNP [address] [place] [address] PHONE:[phone] FAX:[phone] Results sent to [phone] at 0719 on 04/04/19 by [id number] NIRMALA SANDY, PNP [address] [place], [place] [address] PHONE:[phone] FAX:[phone] Results sent to [phone] at 0719 on 04/04/19 by [id number] NIRMALA SANDY, PNP [address] [place], [place] [address] PHONE:[phone] FAX:[phone] Results sent to [phone] at 0719 on 04/04/19 by [id number] Name Value Range Interpretation Code Description Data Devika rce(s) Supporting Document(s) GLYCOSYLATED HGBA1C 5.5 % 4.1-6.5 N [facility] [address] ID Date Data Source [id number] 04/04/2019 09:18:[address] [facility] NIRMALA SANDY, PNP [address] [place] [address] PHONE:[phone] FAX:[phone] NIRMALA SANDY, PNP [address] [place] [address] PHONE:[phone] FAX:[phone] Results sent to [phone] at 0719 on 04/04/19 by [id number] NIRMALA SANDY, PNP [address] [place], [place] [address] PHONE:[phone] FAX:[phone] Results sent to [phone] at 0719 on 04/04/19 by [id number] NIRMALA SANDY, PNP [address] [place], [place] [address] PHONE:[phone] FAX:[phone] Results sent to [phone] at 0719 on 04/04/19 by [id number] NIRMALA SANDY, PNP [address] [place] [address] PHONE:[phone] FAX:[phone] Results sent to [phone] at 0719 on 04/04/19 by [id number] Name Value Range Interpretation Code Description Data Devika rce(s) Supporting Document(s) TRIGLYCERIDES 108 MG/DL 45-150 [facility] CHOLESTEROL 202 MG/DL 125-200 [facility] LDL CHOLESTEROL 112 MG/DL 50-130 [facility] HDL CHOLESTEROL 68 MG/DL 32-96 [facility] CHOL/HDL RATIO 3.0 0-4.3 [facility] ID Date Data Source [id number] 04/04/2019 09:18:00 AM EST [facility] NIRMALA SANDY, PNP [address] [place] [address] PHONE:[phone] FAX:[phone] NIRMALA SANDY, PNP [address] [place] [address] PHONE:[phone] FAX:[phone] Results sent to [phone] at 0719 on 04/04/19 by [id number] NIRMALA SANDY, PNP [address] [place] [address] PHONE:[phone] FAX:[phone] Results sent to [phone] at 0719 on 04/04/19 by [id number] NIRMALA SANDY, PNP [address] [place] [address] PHONE:[phone] FAX:[phone] Results sent to [id number] at 0719 on 04/04/19 by [id number] NIRMALA SANDY, PNP [address] [place] [address] PHONE:[phone] FAX:[phone] Results sent to [phone] at 0719 on 04/04/19 by [id number] Name Value Range Interpretation Code Description Data Devika rce(s) Supporting Document(s) TSH 0.948 uIU/ML 0.470-4.200 [facility] Patients should not be tested for 71 ho urs post fluorescein dye angiography. A false depression of result may occur. Procedure Social History Code Duration Value Status Description Data Source(s ) Smoking 03/17/2019 01:15:58 PM EST Occasional tobacco sm oker (finding) completed Occasional tobacco smoker (finding) [facility] ([facility]) Vital Signs ID Date Data Source UNK Name Value Range Interpretation Code Description Data Source(s) Heart rate 88 /min 88 /min [facility] ([facility]) Diastolic blood pressure 66 mm[Hg] 66 mm[Hg] [facility] ([facility]) Systolic blood pressure 118 mm[Hg] 118 mm[Hg] M [facility] ([facility]) Body surface area Derived from formula 2.03 m2 2.03 m2 [facility] ([facility]) Body mass index (BMI) [Ratio] 33.6 kg/m2 33.6 k g/m2 [facility] Body height 66 [in_i] 66 [in_i] [facility] ([facility]) 5'6" Body weight 94.519 kg 94.519 kg [facility] ([facility]) Body weight 208.38 [lb_av] 208.38 [lb_av] [facility] ([facility]) Oxygen saturation in Arterial blood by Pulse oximetry 99 % 99 % [facility] ([facility]) Respiratory rate 18 /min 18 /min [facility] ( [facility]) Body temperature 96.4 [degF] 96.4 [degF] [facility] ([facility]) Body surface area Derived from formula 2.04 m2 2.04 m2 [facility] ([facility]) Body mass index (BMI) [Ratio] 33.7 kg/m2 33.7 k g/m2 [facility] ([facility]) Body height 66 [in_i] 66 [in_i] [facility] ([facility]) 5'6" Body weight 94.859 kg 94.859 kg [facility] ([facility]) Body weight 209.12 [lb_av] 209.12 [lb_av] [facility] ([facility]) Oxygen saturation in Arterial blood by Pulse oximetry 99 % 99 % [facility] ([facility]) Respiratory rate 18 /min 18 /min [facility] ( [facility]) Body temperature 97.3 [degF] 97.3 [degF] [facility] ([facility]) Heart rate 94 /min 94 /min [facility] ([facility]) Diastolic blood pressure 80 mm[Hg] 80 mm[Hg] [facility] Systolic blood pressure 124 mm[Hg] 124 mm[Hg] M [facility] ([facility]) Body surface area 2.04 m2 2.04 m2 [facility] ([facility]) Body surface area 2.01 m2 2.01 m2 [facility] Body mass index (BMI) [Ratio] 32.6 kg/m2 32.6 k g/m2 [facility] ([facility]) Body height 66 [in_i] 66 [in_i] [facility] ([facility]) 5'6" Body weight 91.741 kg 91.741 kg [facility] ([facility]) Body weight 202.25 [lb_av] 202.25 [lb_av] [facility] ([facility]) Oxygen saturation in Arterial blood by Pulse oximetry 98 % 98 % [facility] ([facility]) Respiratory rate 16 /min 16 /min [facility] ( [facility]) Body temperature 98.2 [degF] 98.2 [degF] [facility] ([facility]) Heart rate 90 /min 90 /min [facility] ([facility]) Diastolic blood pressure 72 mm[Hg] 72 mm[Hg] [facility] ([facility]) Systolic blood pressure 116 mm[Hg] 116 mm[Hg] M [facility] ([facility]) Body mass index (BMI) [Ratio] 32.3 kg/m2 32.3 k g/m2 [facility] ([facility]) Body height 66.5 [in_i] 66.5 [in_i] [facility] ([facility]) Body weight 92.079 kg 92.079 kg [facility] ([facility]) Body weight 203.00 [lb_av] 203.00 [lb_av] [facility] ([facility]) Heart rate 83 /min 83 /min [facility] ([facility]) Diastolic blood pressure 83 mm[Hg] 83 mm[Hg] [facility] ([facility]) Systolic blood pressure 118 mm[Hg] 118 mm[Hg] [facility] Body weight 92.081 kg 92.081 kg [facility] ([facility], ) Body mass index (BMI) [Ratio] 32.3 kg/m2 32.3 k g/m2 [facility] ([facility], ) Body weight 203.00 [lb_av] 203.00 [lb_av] [facility] ([facility], ) Body height 66.5 [in_i] 66.5 [in_i] [facility] ([facility], ) 5'6.50" Heart rate 83 /min 83 /min [facility] Diastolic blood pressure 83 mm[Hg] 83 mm[Hg] EVE ([facility], ) Systolic blood pressure 118 mm[Hg] 118 mm[Hg] Madeleine MCKAY ([facility], )
[2020-04-16 01:21] VITALS: BP 102/65
--- NOTE | 2020-04-16 02:28 | ECGEPIP ---
[facility] - ED Test Date: 2020-04-15 Pat Name: JARRED GEORGE Department: Room: - Gender: Female [employer]: KARINA : 1975 Requested By: NANETTE Knowles Order Number: [id number] Reading MD: Nanette Dyson Measurements Intervals [place] Rate: 105 P: 75 [place]: 150 QRS: 72 QRSD: 92 T: 73 QT: 376 QTc: 496 Interpretive Statements Sinus tachycardia Nonspecific ST abnormality Comparison tracing not on file Electronically Signed on 04-16-2020 2:27:50 EST by Nanette Dyson
== END 2020-04-16 01:25 | disposition home or self-care (01) ==
LOC: M ED 22:54
DX: R00.2 Palpitations (principal); F17.200 Nicotine dependence, unspecified, uncomplicated; F19.10 Other psychoactive substance abuse, uncomplicated; Z88.6 Allergy status to analgesic agent; Z88.8 Allergy status to other drugs, medicaments and biological substances; Z91.013 Allergy to seafood; Z91.041 Radiographic dye allergy status

== ENCOUNTER → 2020-05-19 | Outpatient (CLI) | payer BC ==
[~2020-05-19] MED LIST changes: +FAMO1TAB25 PO; +FAMO20TA PO; +TIZA4TAB4 PO; +medical marijuana PO
--- NOTE | 2020-05-19 10:52 | REP ---
INDICATION: CERVICALGIA, PAIN, LOW BACK PAIN. COMPARISON: 03/11/2016 TECHNIQUE: Three views including swimmer's projection at the cervicothoracic junction. FINDINGS: AP view shows very subtle dextroconvex curve in the midthoracic spine centered at T6. Pedicles, spinous processes, transverse processes and posterior rib articulations along with the medial ribs were unremarkable. Paraspinal lines are unremarkable. No enlargement of the cardiac silhouette. Visual lung montemayor were clear. Lateral view shows no compression deformity in the thoracic spine there is no focal bone lesion or kyphosis. There is some cervical spondylosis at C5-6 and C6-7 on the swimmer's projection. Alignment at the cervicothoracic junction normal. IMPRESSION: 1. Minor degenerative spurring at the multiple endplates in the thoracic spine, age appropriate and without compression deformity, kyphosis, scoliosis or malalignment. Posterior elements grossly intact. Posterior rib articulations intact. Lower cervical spondylosis noted as described above. <Electronically signed by Rodri Leslie > 05/19/20 [id number]
--- NOTE | 2020-05-19 11:02 | REP ---
INDICATION: CERVICALGIA, PAIN, LOW BACK PAIN. COMPARISON: 03/11/2016 TECHNIQUE: Seven views. Swimmer's view from thoracic spine series this date was also reviewed. FINDINGS: There is cervical spondylosis with anterior and posterior osteophytes at C5-6 and slight disc space narrowing minimal narrowing at C6-7 without significant osteophytes the other disc space heights and all vertebral body heights are intact C1-2 relationship is normal on all views. Somewhat limited flexion and extension overall with slight decreased range of motion compared to the prior. The dens and lateral masses align normally on the open mouth few. Foramina were adequate. No prevertebral swelling or malalignment. IMPRESSION: 1. Cervical spondylosis at C5-6, increased compared to the study 4 years ago. Somewhat decreased range of motion but no instability, compression deformity, foraminal encroachment or other acute finding. <Electronically signed by Rodri Leslie > 05/19/20 1050
--- NOTE | 2020-05-19 11:14 | REP ---
INDICATION: CERVICALGIA, PAIN, LOW BACK PAIN COMPARISON: 03/11/2016 TECHNIQUE: AP, lateral, bilateral oblique, and coned-down views of the lumbar spine. FINDINGS: Alignment and lordosis maintained. Vertebral bodies are intact. Presumed 6 lumbar vertebral bodies again noted. Disc spaces are relatively normal/age-appropriate. No acute fracture/compression injury or subluxation. No obvious spondylolysis or spondylolisthesis.. IMPRESSION: No significant degenerative changes appreciated. <Electronically signed by Grzegorz Chakraborty > 05/19/20 1111
== END ==
LOC: M WUC 09:27
PROVIDERS: ATTEND Nurse Practitioner Adult Health
DX: M54.2 Cervicalgia (principal); M54.5 Low back pain; M25.512 Pain in left shoulder; M51.9 Unspecified thoracic, thoracolumbar and lumbosacral intervertebral disc disorder

== ENCOUNTER → 2020-09-15 | Outpatient (CLI) | payer BC ==
[~2020-09-15] MED LIST changes: +FAMO10TA50 PO; -FAMO1TAB25 PO
--- NOTE | 2020-09-15 10:57 | REPMRS ---
Patient History The patient states she had a clinical breast exam in August 2020. Family history of ovarian cancer at age 50 or over in paternal grandmother, colorectal cancer in maternal uncle. No Hormone Replacement Therapy No breast complaints today Patient signed the MRS sheet April, not sure of dates Priors on PACS Patient Identification Verified Digital Woman Screen Mammo: September 15, 2020 - Exam #: [id number] Bilateral CC and MLO view(s) were taken. Technologist: Alana Joyce, Technologist Prior study comparison: August 20, 2019, bilateral digital woman screen mammo performed at [facility]. August 19, 2018, bilateral digital woman screen mammo performed at [facility]. August 17, 2017, bilateral digital woman screen mammo performed at [facility]. FINDINGS: The breast tissue is almost entirely fat. The Volpara volumetric breast density category is: A. There has been no change in the appearance of the mammogram from the prior studies. There is no interval development of dominant mass, architectural distortion, or grouped microcalcification typical of malignancy. 3-D tomosynthesis shows no additional findings. Assessment: BI-RADS/ACR category 1 mammogram. Negative Mammogram. Recommendation Routine screening mammogram of both breasts in 1 year (for women over age 40). This patient's [facility] Lifetime Breast Cancer RIsk is estimated at 11.1 %. This mammogram was interpreted with the aid of an FDA-approved computer-aided dectection system. Electronically Signed By: Harsha Hyatt MD 09/15/20 2308
== END ==
LOC: M WHC 09:19
PROVIDERS: ATTEND Advanced Practice Midwife
DX: Z12.31 Encounter for screening mammogram for malignant neoplasm of breast (principal)

== ENCOUNTER → 2020-09-29 | Outpatient (CLI) | payer BC ==
--- NOTE | 2020-09-29 09:21 | REP ---
INDICATION: ABDOMINAL BLOATING. COMPARISON: 08/23/2017 TECHNIQUE: Routine ultrasound FINDINGS: The uterus has been surgically removed. Right ovary: Not identified. No adnexal mass. Left ovary: Not identified. No adnexal mass. No fluid in the cul-de-sac. Bladder: Unremarkable. IMPRESSION: The uterus has been surgically removed. The ovaries are not visualized. There is no pelvic mass or fluid collection. <Electronically signed by Talha Bateman > 09/29/20 0917
== END ==
LOC: M WHC 07:49
PROVIDERS: ATTEND Advanced Practice Midwife
DX: R14.0 Abdominal distension (gaseous) (principal)

== ENCOUNTER → 2021-08-29 | Outpatient (CLI) | payer BC ==
[~2021-08-29] MED LIST changes: +TIZA10TA PO; -TIZA4TAB4 PO
[2021-08-29 20:04] LABS: HEMATOCRIT 43.2 % (36.0-47.0); HEMOGLOBIN 14.7 g/dl (12.0-15.5); MEAN CORPUSCULAR HEMOGLOBIN 32.5 pg (27.0-33.0); MEAN CORPUSCULAR VOLUME 95.6 fl (80.0-96.0); PLATELET COUNT, AUTOMATED 332 10^3/uL (150-450); RED BLOOD COUNT 4.52 10^6/uL (4.00-5.40); WHITE BLOOD COUNT 6.2 10^3/uL (4.0-10.0)
[2021-08-29 23:27] LABS: ALBUMIN 4.1 GM/DL (3.2-5.2); ALT/SGPT 27 U/L (12-78); BILIRUBIN,TOTAL 0.4 MG/DL (0.2-1.0); BLOOD UREA NITROGEN 11 MG/DL (7-18); CARBON DIOXIDE LEVEL 28 MEQ/L (21-32); CHLORIDE LEVEL 108 MEQ/L (98-107); CHOLESTEROL LEVEL 180 MG/DL (<200); CHOLESTEROL RISK RATIO 2.222 (<5); GLOMERULAR FILTRATION RATE > 60.0 (>58); GLUCOSE, FASTING 91 MG/DL (70-100); HDL CHOLESTEROL 81 MG/DL (>40); LDL CHOLESTEROL 84 MG/DL (<100); NON-HDL-C 99 MG/DL; POTASSIUM SERUM 4.3 MEQ/L (3.5-5.1); SODIUM LEVEL 140 MEQ/L (136-145); THYROID STIMULATING HORMONE 0.733 uIU/ML (0.358-3.740); TOTAL PROTEIN 6.8 GM/DL (6.4-8.2); TRIGLYCERIDES LEVEL 76 MG/DL (<150)
[2021-08-30 01:15] LABS: HEMOGLOBIN A1c 5.3 %
== END ==
LOC: M WUC 14:53
PROVIDERS: ATTEND Nurse Practitioner Family
DX: E78.00 Pure hypercholesterolemia, unspecified (principal); R12 Heartburn; F32.9 Major depressive disorder, single episode, unspecified; Z79.899 Other long term (current) drug therapy

== ENCOUNTER → 2022-11-03 | Outpatient (CLI) | payer OTHER | LOC: M WUC 13:40 | PROVIDERS: ATTEND Neurological Surgery | DX: M50.122 Cervical disc disorder at C5-C6 level with radiculopathy (principal) ==

== ENCOUNTER → 2024-12-30 | Outpatient (CLI) | payer OTHER | LOC: M WUC 11:46 | DX: M25.572 Pain in left ankle and joints of left foot (principal) ==